=== PATIENT | female | born 1965 | race Caucasian/White ===

== ENCOUNTER 2016-03-19 11:54 | Emergency (ER) | payer OTHER ==
[2016-03-19] MEDS ORDERED: OXYCODONE-ACETAMINOPHEN 5-325 MG TABLET PO ONE (12:05)
[2016-03-19] MEDS ORDERED: ONDANSETRON 4 MG TAB.RAPDIS PO ONE (12:05)
--- NOTE | 2016-03-19 12:07 | ER Document Report ---
ED Medical Screen (RME) - General Stated Complaint: RIGHT ARM PAIN, SWELLING Time seen by provider: 12:04 Mode of Arrival: Ambulatory Information source: Patient Notes: 50-year-old female complaining of severe right shoulder pain without injury. She has a history of arthritis but she is wondering if this is bursitis. It hurts when she moves her shoulder and radiates into the right deltoid. She says there is some swelling. No recent injury. TRAVEL OUTSIDE OF THE [place] IN LAST 30 DAYS: No - Related Data Allergies/Adverse Reactions: cefdinir [From Omnicef] Allergy (Intermediate, Verified 03/23/12 15:11) rash, hives Penicillins Allergy (Intermediate, Verified 03/23/12 15:11) rash,hives Past Medical History - Past Medical History Cardiac Medical History: Reports: Hx Hypertension - meds x 7 years Denies: Hx Coronary Artery Disease, Hx Heart Attack Pulmonary Medical History: Denies: Hx Asthma, Hx Bronchitis, Hx COPD, Hx Pneumonia Neurological Medical History: Reports: Hx Migraine. Denies: Hx Cerebrovascular Accident, Hx Seizures Musculoskeltal Medical History: Reports Hx Arthritis - osteo Past Surgical History: Reports: Hx Orthopedic Surgery - carpal tunnel both hands. Denies: Hx Pacemaker - Immunizations Hx Diphtheria, Pertussis, Tetanus Vaccination: Yes - 2005 Physical Exam - Vital signs Vitals: Temp Pulse Resp BP Pulse Ox 98.0 F 100 20 145/83 H 98 03/19/16 11:59 03/19/16 11:59 03/19/16 11:59 03/19/16 11:59 03/19/16 11:59 Course - Vital Signs Vital signs: Temp Pulse Resp BP Pulse Ox 98.0 F 100 20 145/83 H 98 03/19/16 11:59 03/19/16 11:59 03/19/16 11:59 03/19/16 11:59 03/19/16 11:59
--- NOTE | 2016-03-19 12:50 | ER Document Report ---
ED Extremity Problem, Upper - General Chief Complaint: Shoulder Pain Stated Complaint: RIGHT ARM PAIN, SWELLING Time seen by provider: 12:46 Mode of Arrival: Ambulatory TRAVEL OUTSIDE OF THE [place] IN LAST 30 DAYS: No - HPI Patient complains to provider of: Right - Pt with 1 day h/o pain and swelling in R shoulder. Denies h/o trauma - Related Data Allergies/Adverse Reactions: cefdinir [From Omnicef] Allergy (Intermediate, Verified 03/23/12 15:11) rash, hives Penicillins Allergy (Intermediate, Verified 03/23/12 15:11) rash,hives Past Medical History - General Information source: Patient - Social History Smoking Status: Never Smoker Cigarette use (# per day): No Chew tobacco use (# tins/day): No Smoking Education Provided: No Family History: None - Past Medical History Cardiac Medical History: Reports: Hx Hypertension - meds x 7 years Denies: Hx Coronary Artery Disease, Hx Heart Attack Pulmonary Medical History: Denies: Hx Asthma, Hx Bronchitis, Hx COPD, Hx Pneumonia Neurological Medical History: Reports: Hx Migraine. Denies: Hx Cerebrovascular Accident, Hx Seizures Renal/ Medical History: Denies: Hx Peritoneal Dialysis Musculoskeltal Medical History: Reports Hx Arthritis - osteo Past Surgical History: Reports: Hx Orthopedic Surgery - carpal tunnel both hands. Denies: Hx Pacemaker - Immunizations Hx Diphtheria, Pertussis, Tetanus Vaccination: Yes - 2005 Review of Systems - Review of Systems Constitutional: No symptoms reported EENT: No symptoms reported Cardiovascular: No symptoms reported Respiratory: No symptoms reported Gastrointestinal: No symptoms reported Musculoskeletal: See HPI, Joint pain Neurological/Psychological: No symptoms reported Physical Exam - Vital signs Vitals: Temp Pulse Resp BP Pulse Ox 98.0 F 100 20 145/83 H 98 03/19/16 11:59 03/19/16 11:59 03/19/16 11:59 03/19/16 11:59 03/19/16 11:59 - General General appearance: Appears well In distress: None - Respiratory Respiratory status: No respiratory distress Breath sounds: Normal - Cardiovascular Rhythm: Regular Heart sounds: Normal auscultation - Extremities Shoulder: Other - there is min-mod TTP over ethe R A-C joint and R subdeltoid bursa. There is decreased ROM on full extension but is N/V intact Course - Re-evaluation Re-evalutation: 03/19/16 13:12 pt. felt better after pain meds -- expressed desire to go home with relative - Vital Signs Vital signs: Temp Pulse Resp BP Pulse Ox 98.0 F 104 H 20 145/83 H 97 03/19/16 12:04 03/19/16 12:04 03/19/16 12:04 03/19/16 12:04 03/19/16 12:04 - Diagnostic Test Radiology reviewed: Image reviewed - neg Discharge - Discharge Clinical Impression: Shoulder pain, right Qualifiers: Chronicity: acute Qualified Code(s): M25.511 - Pain in right shoulder Condition: Stable Disposition: HOME, SELF-CARE Additional Instructions: rest, take meds as prescribed, return if worse Prescriptions: Prednisone 5 mg PO BID #14 tablet Tramadol HCl 50 mg PO BID #14 tablet Referrals: TINY GILLILAND MD [ACTIVE STAFF] - Follow up as needed
[2016-03-19 13:50] VITALS: BP 131/83
== END 2016-03-19 13:43 | disposition home or self-care (01) ==
LOC: ER 11:54
DX: M25.511 Pain in right shoulder (principal); I10 Essential (primary) hypertension; Z88.3 Allergy status to other anti-infective agents; Z88.0 Allergy status to penicillin
CPT/HCPCS: 99283; 73030; S0119

== ENCOUNTER 2016-05-30 08:02 | Emergency (ER) | payer OTHER ==
[2016-05-30 08:08] VITALS: BP 151/98
[2016-05-30] MEDS ORDERED: FAMOTIDINE 20 MG TABLET PO ONE (09:25)
--- NOTE | 2016-05-30 09:39 | ER Document Report ---
ED Skin Rash/Insect Bite/Abscs - General Chief Complaint: Insect Bite Stated Complaint: FACE PAIN Time seen by provider: 09:25 Mode of Arrival: Ambulatory Information source: Patient Notes: 50-year-old female presents to ED for bug bites since last night with swelling to the left eyebrow. Soreness to the lymph node of the left side of the face no fevers or chills TRAVEL OUTSIDE OF THE [place] IN LAST 30 DAYS: No - HPI Patient complains to provider of: Insect bite Onset: Other - Monday night Onset/Duration: Persistent Quality of pain: Achy Severity: Moderate Pain Level: 3 Skin Character: Other - Inset bite to left eyebrow Quality of rash: Itchy Identify cause: Yes Exacerbated by: Denies Relieved by: Denies Similar symptoms previously: Yes Recently seen / treated by doctor: No - Related Data Allergies/Adverse Reactions: cefdinir [From Omnicef] Allergy (Intermediate, Verified 05/30/16 08:56) rash, hives Penicillins Allergy (Intermediate, Verified 05/30/16 08:56) rash,hives Past Medical History - General Information source: Patient - Social History Smoking Status: Never Smoker Cigarette use (# per day): No Chew tobacco use (# tins/day): No Smoking Education Provided: No Frequency of alcohol use: None Drug Abuse: None Lives with: Alone Family History: Arthritis, CAD, COPD, CVA, DM, Hyperlipidemia, Hypertension, Malignancy Patient has suicidal ideation: No Patient has homicidal ideation: No - Past Medical History Cardiac Medical History: Reports: Hx Hypertension - meds x 7 years Pulmonary Medical History: Reports: None EENT Medical History: Reports: None Neurological Medical History: Reports: Hx Migraine Endocrine Medical History: Reports: None Renal/ Medical History: Reports: None Malignancy Medical History: Reports: None GI Medical History: Reports: None Musculoskeltal Medical History: Reports Hx Arthritis - osteo, rheumatoid, Reports Hx Musculoskeletal Deformity, Reports Hx Musculoskeletal Trauma Skin Medical History: Reports Hx Cellulitis Psychiatric Medical History: Reports: None Past Surgical History: Reports: Hx Orthopedic Surgery - carpal tunnel both hands. Denies: Hx Pacemaker - Immunizations Hx Diphtheria, Pertussis, Tetanus Vaccination: Yes - 2006 Review of Systems - Review of Systems Constitutional: No symptoms reported EENT: No symptoms reported Cardiovascular: No symptoms reported Respiratory: No symptoms reported Gastrointestinal: No symptoms reported Genitourinary: No symptoms reported Female Genitourinary: No symptoms reported Musculoskeletal: No symptoms reported Skin: Other - Insect bite to left eyebrow Hematologic/Lymphatic: No symptoms reported Neurological/Psychological: No symptoms reported Physical Exam - Vital signs Vitals: Temp Pulse Resp BP Pulse Ox 98.5 F 90 18 151/98 H 98 05/30/16 08:06 05/30/16 08:06 05/30/16 08:06 05/30/16 08:06 05/30/16 08:06 Interpretation: Normal - General General appearance: Appears well, Alert - HEENT Head: Normocephalic, Atraumatic, Other - Insect bites to left eyebrow Eyes: Normal Pupils: PERRL Ears: Normal External canal: Normal Tympanic membrane: Normal Sinus: Normal Nasal: Normal Mouth/Lips: Normal Mucous membranes: Normal Pharynx: Normal Neck: Normal - Respiratory Respiratory status: No respiratory distress Chest status: Nontender Breath sounds: Normal Chest palpation: Normal - Cardiovascular Rhythm: Regular Heart sounds: Normal auscultation Murmur: No - Abdominal Inspection: Normal Distension: No distension Bowel sounds: Normal Tenderness: Nontender Organomegaly: No organomegaly - Back Back: Normal, Nontender - Extremities General upper extremity: Normal inspection, Nontender, Normal color, Normal ROM , Normal temperature General lower extremity: Normal inspection, Nontender, Normal color, Normal ROM , Normal temperature, Normal weight bearing. No: Cece's sign - Neurological Neuro grossly intact: Yes Cognition: Normal Orientation: AAOx4 [place] Coma Scale Eye Opening: Spontaneous Sanjay Coma Scale Verbal: Oriented Sanjay Coma Scale Motor: Obeys Commands Sanjay Coma Scale Total: 15 Speech: Normal Motor strength normal: LUE, RUE, LLE, RLE Sensory: Normal - Psychological Associated symptoms: Normal affect, Normal mood - Skin Skin Temperature: Warm Skin Moisture: Dry Skin Color: Normal Course - Vital Signs Vital signs: Temp Pulse Resp BP Pulse Ox 98.5 F 90 18 151/98 H 98 05/30/16 08:06 05/30/16 08:06 05/30/16 08:06 05/30/16 08:06 05/30/16 08:06 Discharge - Discharge Clinical Impression: Insect bite of face with local reaction Qualifiers: Encounter type: initial encounter Qualified Code(s): S00.86XA - Insect bite ( nonvenomous) of other part of head, initial encounter Condition: Stable Disposition: HOME, SELF-CARE Additional Instructions: Insect Bites You have been bitten by an insect. These bites can cause two types of swelling: an initial swelling due to insect saliva or injected poison, and a late reaction due to your body's allergic reaction. This initial local reaction may be uncomfortable but is not dangerous. Often there's an itchy "hive" at the bite location. This is treated with antihistamines, cold compresses, and resting the affected body part. The later reaction often develops about the second day. The entire area becomes very swollen, red, itchy, and tender. This is an allergic reaction. Your body is attacking the leftover insect saliva or venom. This type of allergy is unpleasant, but not dangerous. We treat this swelling with cortisone -type medicine. Sometimes we use antibiotics if we're worried about infection. Antihistamines help with the itch. If you develop a fever, chills, a red streak, or swollen glands in the area of the bite, infection may be starting. Return at once. ACID-SUPPRESSING MEDICATION: You have a prescription for medicine which reduces the stomach's secretion of acid. Examples include Zantac, Tagament, and Pepcid. These drugs are often used to allow healing of ulcers or esophagitis. They may be needed to prevent recurrence of ulcers in some patients, or to prevent damage from acid reflux in the esophagus. Take all medication as prescribed, even after the pain is gone. Regular antacids may be added as needed if you have symptoms while taking this medicine. These medications sometimes are prescribed for allergic reactions because they have anti-histaminic effects and relieve the rash and itching of the reaction. There are usually no side effects from this medication. But, in rare cases and particularly in the elderly, serious problems can occur. Contact your doctor if there is fever, rash, hallucinations, confusion, or unusual bruising. USE OF DIPHENHYDRAMINE: The use of diphenhydramine (Benadryl) has been recommended to control allergic symptoms. The 25 mg strength is available over- the-counter, as well as the elixir. This antihistamine is used for many symptoms. It's useful for itching, watering eyes and nose, allergic swelling, hives, and insect stings. The medication can be repeated four times daily. Age Elixir (12.5 mg/tsp) 25 mg pill 2-3 yr 1/2 tsp 4-8 yr 1 tsp 9-14 yr 2 tsp one tab adult 1-2 tabs Antihistamines may cause drowsiness, especially with the first dose. Do not operate machinery or drive while under the effects of the medication. Do not combine the medication with alcohol, or with any other medication without talking to your doctor. FOLLOW-UP CARE: If you have been referred to a physician for follow-up care, call the physician s office for an appointment as you were instructed or within the next two days. If you experience worsening or a significant change in your symptoms, notify the physician immediately or return to the Emergency Department at any time for re-evaluation. Please complete the patient's satisfaction survey if you get one and return. If you do not receive a survey you can go to [email or web address] and place your comments about your very good care. Thank you very much. It was a pleasure be in your medical provider today. Forms: Elevated Blood Pressure, Return to Work Referrals: MONIKA GO MD [Primary Care Provider] - Follow up as needed
== END 2016-05-30 09:36 | disposition home or self-care (01) ==
LOC: ER 08:02
DX: S00.262A Insect bite (nonvenomous) of left eyelid and periocular area, initial encounter (principal); W57.XXXA Bitten or stung by nonvenomous insect and other nonvenomous arthropods, initial encounter; I10 Essential (primary) hypertension; Z88.0 Allergy status to penicillin
CPT/HCPCS: 99283

== ENCOUNTER 2016-06-05 12:17 | Emergency (ER) | payer OTHER ==
--- NOTE | 2016-06-05 12:42 | ER Document Report ---
ED Medical Screen (RME) - General Chief Complaint: Headache Stated Complaint: LEFT EYE SWELLING Mode of Arrival: Ambulatory Information source: Patient TRAVEL OUTSIDE OF THE [place] IN LAST 30 DAYS: No - HPI Onset: Other - 9 DAYS AGO Onset/Duration: Sudden Quality of pain: Burning, Pressure Severity: Moderate Associated Symptoms: Chills, Nausea. denies: Fever Exacerbated by: Movement Relieved by: Remaining still Similar symptoms previously: No Recently seen / treated by doctor: Yes - DR. GO, 5 d AGO, BEGUN ON KEFLEX - Related Data Allergies/Adverse Reactions: cefdinir [From Omnicef] Allergy (Intermediate, Verified 06/05/16 12:28) rash, hives Penicillins Allergy (Intermediate, Verified 06/05/16 12:28) rash,hives Home Medications: Current Home Medications Cephalexin [Cephalexin 500 MG Capsule] 1 cap PO QID 06/05/16 [History] Duloxetine HCl 60 mg PO DAILY 06/05/16 [History] Folic Acid 1 tab PO DAILY 06/05/16 [History] Hydrocodone Bit/Acetaminophen [Hydrocodon-Acetaminophen 5-325] 1 tab PO PRN PRN 06/05/16 [History] Metronidazole [Flagyl 500 mg Tablet] 500 mg PO PRN PRN 06/05/16 [History] Prednisone 5 mg PO DAILY 06/05/16 [History] Past Medical History - General Information source: Patient - Past Medical History Cardiac Medical History: Reports: Hx Hypertension - meds x 7 years Denies: Hx Coronary Artery Disease, Hx Heart Attack Pulmonary Medical History: Denies: Hx Asthma, Hx Bronchitis, Hx COPD, Hx Pneumonia Neurological Medical History: Reports: Hx Migraine. 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 Denies: Hx Pacemaker - Immunizations Hx Diphtheria, Pertussis, Tetanus Vaccination: Yes - 2006 Review of Systems - Review of Systems Constitutional: See HPI EENT: See HPI Cardiovascular: No symptoms reported Respiratory: No symptoms reported Gastrointestinal: Other - INCREASED PAIN IN FISTULA Physical Exam - Vital signs Vitals: Temp Pulse Resp BP Pulse Ox 98.5 F 105 H 18 153/87 H 98 06/05/16 12:20 06/05/16 12:20 06/05/16 12:20 06/05/16 12:20 06/05/16 12:20 Interpretation: Hypertensive, Tachypneic. No: Febrile - General General appearance: Appears well, Alert In distress: None - HEENT Head: Open wounds - L. EYEBROW AREA Notes: MILD FULLNESS AND TENDERNESS L. FACE, PRE-AURICULAR Course - Vital Signs Vital signs: Temp Pulse Resp BP Pulse Ox 98.5 F 105 H 18 153/87 H 98 06/05/16 12:20 06/05/16 12:20 06/05/16 12:20 06/05/16 12:20 06/05/16 12:20
[2016-06-05] MEDS ORDERED: CLINDAMYCIN 600 MG/D5W RTU 50 ML IV ONE (12:49)
[2016-06-05 13:09] LABS: ABSOLUTE BASOPHILS # (AUTO) 0.1 10^3/uL (0.0-0.2); ABSOLUTE EOSINOPHILS # (AUTO) 0.3 10^3/uL (0.0-0.6); ABSOLUTE LYMPHOCYTES (AUTO) 2.5 10^3/uL (0.5-4.7); ABSOLUTE MONOCYTES (AUTO) 0.7 10^3/uL (0.1-1.4); ABSOLUTE NEUT (AUTO) 6.3 10^3/uL (1.7-8.2); BASOPHILS % (AUTO) 0.9 % (0-2); EOSINOPHILS % (AUTO) 2.9 % (0-6); HEMATOCRIT 37.4 % (36.0-47.0); HEMOGLOBIN 12.5 g/dL (12.0-15.5); HGB HCT DIFFERENCE 0.1; LYMPHOCYTES % (AUTO) 25.2 % (13-45); MEAN CORPUSCULAR HEMOGLOBIN 30.1 pg (27.0-33.4); MEAN CORPUSCULAR HGB CONC 33.3 g/dL (32.0-36.0); MEAN CORPUSCULAR VOLUME 90 fl (80-97); MONOCYTES % (AUTO) 7.2 % (3-13); RED BLOOD COUNT 4.14 10^6/uL (3.72-5.28); RED CELL DISTRIBUTION WIDTH 15.4 % (11.5-14.0); SEGMENTED NEUTROPHILS % (AUTO) 63.8 % (42-78); WHITE BLOOD COUNT 9.8 10^3/uL (4.0-10.5)
[2016-06-05 13:24] LABS: ALANINE AMINOTRANSFERASE 41 U/L (9-52); ALBUMIN 4.1 g/dL (3.5-5.0); ALKALINE PHOSPHATASE 61 U/L (38-126); ANION GAP 13 (5-19); ASPARTATE AMINO TRANSFERASE 20 U/L (14-36); BILIRUBIN,DIRECT 0.3 mg/dL (0.0-0.4); BILIRUBIN,TOTAL 0.9 mg/dL (0.2-1.3); BLOOD UREA NITROGEN 19 mg/dL (7-20); CALCIUM 9.5 mg/dL (8.4-10.2); CARBON DIOXIDE 31 mmol/L (22-30); CHLORIDE 101 mmol/L (98-107); GLUCOSE 131 mg/dL (75-110); POTASSIUM 4.2 mmol/L (3.6-5.0); SODIUM 144.6 mmol/L (137-145); TOTAL PROTEIN 6.9 g/dL (6.3-8.2)
--- NOTE | 2016-06-05 14:17 | ER Document Report ---
ED General - General Chief Complaint: Headache Stated Complaint: LEFT EYE SWELLING Time seen by provider: 14:15 Mode of Arrival: Ambulatory Information source: Patient Notes: This is a 50-year-old female with a history of hypertension and arthritis who presents to the emergency room with swelling over the left eyebrow. Patient states it started off as a possible "bug bite". Patient states that she saw Dr. Flores and was placed on Keflex and comes in because it continues to itch and she is having pain in the area. Patient denies fever. Patient states that she gets blurry vision could she's rubbing her eye a lot. TRAVEL OUTSIDE OF THE [place] IN LAST 30 DAYS: No - HPI Onset: Yesterday Onset/Duration: Gradual Quality of pain: Other - Itching Severity: Mild Pain Level: Denies Associated symptoms: denies: Chills, Fever, Shortness of breath Exacerbated by: Denies Relieved by: Denies Similar symptoms previously: No Recently seen / treated by doctor: Yes - Related Data Allergies/Adverse Reactions: cefdinir [From Omnicef] Allergy (Intermediate, Verified 06/05/16 12:28) rash, hives Penicillins Allergy (Intermediate, Verified 06/05/16 12:28) rash,hives Home Medications: Current Home Medications Cephalexin [Cephalexin 500 MG Capsule] 1 cap PO QID 06/05/16 [History] Duloxetine HCl 60 mg PO DAILY 06/05/16 [History] Folic Acid 1 tab PO DAILY 06/05/16 [History] Hydrocodone Bit/Acetaminophen [Hydrocodon-Acetaminophen 5-325] 1 tab PO PRN PRN 06/05/16 [History] Metronidazole [Flagyl 500 mg Tablet] 500 mg PO PRN PRN 06/05/16 [History] Prednisone 5 mg PO DAILY 06/05/16 [History] Past Medical History - General Information source: Patient - Social History Smoking Status: Never Smoker Cigarette use (# per day): No Chew tobacco use (# tins/day): No Frequency of alcohol use: None Drug Abuse: None Family History: Arthritis, CAD, COPD, CVA, DM, Hyperlipidemia, Hypertension, Malignancy Patient has suicidal ideation: No Patient has homicidal ideation: No - Past Medical History Cardiac Medical History: Reports: Hx Hypertension - meds x 7 years Denies: Hx Coronary Artery Disease, Hx Heart Attack Pulmonary Medical History: Denies: Hx Asthma, Hx Bronchitis, Hx COPD, Hx Pneumonia Neurological Medical History: Reports: Hx Migraine. 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 Denies: Hx Pacemaker - Immunizations Hx Diphtheria, Pertussis, Tetanus Vaccination: Yes - 2005 Review of Systems - Review of Systems Constitutional: denies: Chills, Fever EENT: See HPI Cardiovascular: No symptoms reported Respiratory: No symptoms reported Gastrointestinal: No symptoms reported Genitourinary: No symptoms reported Female Genitourinary: No symptoms reported Musculoskeletal: No symptoms reported Skin: No symptoms reported Hematologic/Lymphatic: No symptoms reported Neurological/Psychological: No symptoms reported Physical Exam - Vital signs Vitals: Temp Pulse Resp BP Pulse Ox 98.5 F 105 H 18 153/87 H 98 06/05/16 12:20 06/05/16 12:20 06/05/16 12:20 06/05/16 12:20 06/05/16 12:20 Notes: Physical exam: GENERAL: 50-year-old female, alert and oriented 3, no acute distress. Lying in the stretcher with her mother. Patient is continually rubbing her left eyebrow. HEAD: Atraumatic, normocephalic. EYES: Patient does have a small scab on the middle portion of the left eyebrow. There is induration and erythema of the area but no gross fluctuance. There is no drainage. Pupils equal round and reactive to light, extraocular movements intact, is no pain with extraocular muscles and there is no entrapment , sclera is clear, conjunctiva is clear. ENT: TMs normal, nares patent, oropharynx clear without exudates. Moist mucous membranes. NECK: Normal range of motion, supple without lymphadenopathy or JVD. LUNGS: Breath sounds clear to auscultation bilaterally and equal. No wheezes rales or rhonchi. HEART: Regular rate and rhythm without murmurs, rubs or gallops. ABDOMEN: Soft, normoactive bowel sounds. No tenderness to palpation. No guarding, no rebound. No masses appreciated. EXTREMITIES: Normal range of motion, no pitting or edema. No clubbing or cyanosis. NEUROLOGICAL: Cranial nerves II through XII grossly intact. Normal speech, normal gait. PSYCH: Normal mood, normal affect. SKIN: Warm, Dry, normal turgor, no rashes or lesions noted. Course - Re-evaluation Re-evalutation: 06/05/16 16:22 Note: Clinically, there is no fluctuance at this point. The CT shows no obvious abscess. Patient is afebrile on the white count is normal. The patient was given IV clindamycin and a tetanus shot. I have referred her to plastic surgery for follow-up. In the meantime, I'm putting her on clindamycin and taking her off the Keflex. - Vital Signs Vital signs: Temp Pulse Resp BP Pulse Ox 98.5 F 105 H 18 153/87 H 98 06/05/16 12:20 06/05/16 12:20 06/05/16 12:20 06/05/16 12:20 06/05/16 12:20 - Laboratory Result Diagrams: 06/05/16 12:55 06/05/16 12:55 Laboratory results interpreted by me: 06/05/16 06/05/16 12:55 12:55 RDW 15.4 H Carbon Dioxide 31 H Glucose 131 H - Diagnostic Test Radiology reviewed: Image reviewed, Reports reviewed - CT of the face shows no obvious abscess Discharge - Discharge Clinical Impression: cellulitis Condition: Stable Disposition: HOME, SELF-CARE Instructions: Clindamycin ([facility]), Tetanus Immunization Given ([facility]) Additional Instructions: As we discussed, the CT scan showed no evidence of abscess at this point. You did get a dose of IV clindamycin in the emergency room as well as a tetanus shot. Recommendations: Continue the clindamycin antibiotic. Stop the Keflex. Can put warm soaks over the left eyebrow several times a day for the next few days. Abdomen abscess does form: I would like you to follow-up with the plastic surgeon who would perform an incision and drainage. Return to the ER for any concerns that the infection is spreading, worsening pain, worsening redness, worsening swelling or any concerns or getting worse. Prescriptions: Clindamycin HCl 300 mg PO Q6HP PRN #28 capsule PRN Reason: Forms: Parent Work Note, Return to Work Referrals: MONIKA FLORES MD [Primary Care Provider] - Follow up in 3-5 days KEYONNA CONWAY MD [ACTIVE STAFF] - Follow up as needed (This is the number the plastic surgeon: Call the office tomorrow and tell them you were in the emergency room for a facial infection in the ER doctor wanted you seen in the next few days.)
[2016-06-05] MEDS ORDERED: DIPH/PERTUSS(ACELL)/TETANUS VAC/PF 0.5 ML SYR (>=10YO) IM ONE (16:15)
[2016-06-05 17:29] VITALS: BP 126/75
== END 2016-06-05 17:28 | disposition home or self-care (01) ==
LOC: ER 12:17
DX: L03.211 Cellulitis of face (principal); R51 Headache; I10 Essential (primary) hypertension; Z88.0 Allergy status to penicillin; Z23 Encounter for immunization
CPT/HCPCS: 36415; 70487; 80053; 85025; 87040; 90471; 90715; 96365; 99284

== ENCOUNTER 2017-07-15 09:28 | Emergency (ER) | payer OTHER ==
[2017-07-15] MEDS ORDERED: CLINDAMYCIN 600 MG/D5W RTU 600 MG/50 ML RTUPB IV ONE (10:00)
--- NOTE | 2017-07-15 10:11 | ER Document Report ---
ED Medical Screen (RME) - General Chief Complaint: Cat Bite Stated Complaint: CAT BITE Time Seen by Provider: 07/15/17 09:57 Mode of Arrival: Ambulatory Information source: Patient Notes: This is a 51-year-old female presents to the emergency room with left third finger swelling and pain after a cat bite yesterday at 6 PM. Patient states that the cat lives at her mother's house but "it is not my mother's cat". The cat was acting appropriate and was "not foaming at the mouth or acting strange" . This is a 4-week-old (approximately) feral cat. The cat stays around the mother's home and the patient takes care of it. It seemed to have an upper respiratory infection and the patient was cleaning the cat when it turned and latched onto her finger. This occurred 6 PM yesterday and it was throbbing last night and she comes in with redness and throbbing of the left third finger. There is a obvious bite with tenderness to the volar aspect of the distal finger. She does feel pain going up the flexor tendon of the finger. She is allergic to penicillin and Omnicef. She does state she has tolerated Augmentin in the past. Tetanus is up-to-date (last year) I have addressed the issue of rabies prophylaxis. The patient reiterates that the cat was acting quite normally. She prefers not to have rabies prophylaxis at this time. I have discussed the recommendations that Vasyl cats that are not available for observation might require prophylaxis for rabies. She is adamant against that at this time and states that the cat is at the house and available for observation. I have greeted and performed a rapid initial assessment of this patient. A comprehensive ED assessment and evaluation of the patient, analysis of test results and completion of medical decision making process we will be contacted by additional ED providers. TRAVEL OUTSIDE OF THE [place] IN LAST 30 DAYS: No - Related Data Allergies/Adverse Reactions: cefdinir [From Omnicef] Allergy (Intermediate, Verified 07/15/17 09:29) rash, hives Penicillins Allergy (Intermediate, Verified 07/15/17 09:29) rash,hives Past Medical History - Social History Chew tobacco use (# tins/day): No Frequency of alcohol use: None Drug Abuse: None - Past Medical History Cardiac Medical History: Reports: Hx Hypertension - meds x 7 years Denies: Hx Coronary Artery Disease, Hx Heart Attack Pulmonary Medical History: Denies: Hx Asthma, Hx Bronchitis, Hx COPD, Hx Pneumonia Neurological Medical History: Reports: Hx Migraine. Denies: Hx Cerebrovascular Accident, Hx Seizures Renal/ Medical History: Denies: Hx Peritoneal Dialysis Musculoskeltal Medical History: Reports Hx Arthritis - osteo, Reports Hx Musculoskeletal Deformity, Reports Hx Musculoskeletal Trauma Skin Medical History: Reports Hx Cellulitis Past Surgical History: Reports: Hx Orthopedic Surgery - carpal tunnel both hands. Denies: Hx Pacemaker - Immunizations Hx Diphtheria, Pertussis, Tetanus Vaccination: Yes - 2005 Physical Exam - Vital signs Vitals: Temp Pulse Resp BP Pulse Ox 99.0 F 95 18 148/98 H 97 07/15/17 09:33 07/15/17 09:33 07/15/17 09:33 07/15/17 09:33 07/15/17 09:33 Course - Vital Signs Vital signs: Temp Pulse Resp BP Pulse Ox 99.0 F 95 18 148/98 H 97 07/15/17 09:33 07/15/17 09:33 07/15/17 09:33 07/15/17 09:33 07/15/17 09:33
[2017-07-15] MEDS ORDERED: LIDOCAINE 1% INJ-PF (10 MG/ML) 30 ML SDV INJ ONE (10:49)
[2017-07-15] MEDS ORDERED: AMPICILLIN SOD/SULBACTAM 3 GM VIAL IV ONE (10:49)
--- NOTE | 2017-07-15 10:57 | ER Document Report ---
ED Animal Bite - General Chief Complaint: Cat Bite Stated Complaint: CAT BITE Time Seen by Provider: 07/15/17 09:57 Mode of Arrival: Ambulatory Notes: 51-year-old female to emergency department status post Bite third digit left hand. Patient was taking care of a feral cat when she was bit on her fingertip last night. Has been throbbing all night long. States that the cat has a "upper respiratory infection" and she has been taking care of it. Does not appear to be acting abnormal but does admit to the cat is sick. When asked about rabies shots patient is adamant that she does not want to take rabies shots. Patient is up-to-date on her tetanus. Has a reported allergy to penicillin and cephalosporin however thinks that this is an accurate. Has taken Augmentin as well as Omnicef in the past. States that she had some redness developed while on Omnicef but was easily treated with Benadryl and completed the course of Omnicef. Pain is located on the distal tip of the third digit on the left hand. Throbbing. No lymphangitic streaking is reported. No fever, chills, sweats or other issues. TRAVEL OUTSIDE OF THE [place] IN LAST 30 DAYS: No - HPI Location of injury: LUE Severity of injury: Bitten Onset: Yesterday Quality of pain: Throbbing Pain Level: 3 Severity: Moderate Context of attack: "Provoked" attack, Playing with animal Type of animal: Cat Appearance of animal: Appeared ill Animal's immunizations: Not immunized Animal captured or known: Yes - Related Data Allergies/Adverse Reactions: cefdinir [From Omnicef] Allergy (Intermediate, Verified 07/15/17 09:29) rash, hives Penicillins Allergy (Intermediate, Verified 07/15/17 09:29) rash,hives Past Medical History - General Information source: Patient - Social History Smoking Status: Never Smoker Chew tobacco use (# tins/day): No Frequency of alcohol use: None Drug Abuse: None Lives with: Spouse/Significant other Family History: Arthritis, CAD, COPD, CVA, DM, Hyperlipidemia, Hypertension, Malignancy Patient has suicidal ideation: No Patient has homicidal ideation: No - Past Medical History Cardiac Medical History: Reports: Hx Hypertension - meds x 7 years Denies: Hx Coronary Artery Disease, Hx Heart Attack Pulmonary Medical History: Denies: Hx Asthma, Hx Bronchitis, Hx COPD, Hx Pneumonia Neurological Medical History: Reports: Hx Migraine. Denies: Hx Cerebrovascular Accident, Hx Seizures Renal/ Medical History: Denies: Hx Peritoneal Dialysis Musculoskeltal Medical History: Reports Hx Arthritis - osteo, Reports Hx Musculoskeletal Deformity, Reports Hx Musculoskeletal Trauma Skin Medical History: Reports Hx Cellulitis Past Surgical History: Reports: Hx Orthopedic Surgery - carpal tunnel both hands. Denies: Hx Pacemaker - Immunizations Hx Diphtheria, Pertussis, Tetanus Vaccination: Yes - 2005 Review of Systems - Review of Systems Constitutional: denies: Fever, Malaise, Weakness EENT: denies: Eye pain, Ear discharge, Difficulty swallowing Cardiovascular: denies: Chest pain, Palpitations, Heart racing Respiratory: denies: Cough, Hurts to breathe, Short of breath Gastrointestinal: denies: Abdominal pain, Nausea, Vomiting Musculoskeletal: See HPI, Other - Finger swelling status post cat bite Skin: See HPI, Other - Finger swelling of the third digit on the left hand Physical Exam - Vital signs Vitals: Temp Pulse Resp BP Pulse Ox 99.0 F 95 18 148/98 H 97 07/15/17 09:33 07/15/17 09:33 07/15/17 09:33 07/15/17 09:33 07/15/17 09:33 Interpretation: Normal - Respiratory Respiratory status: No respiratory distress Chest status: Nontender Breath sounds: Normal Chest palpation: Normal - Cardiovascular Rhythm: Regular Heart sounds: Normal auscultation Murmur: No - Extremities General upper extremity: Normal ROM, Other - The third digit distal tip left hand swollen, red, warm. There are 2 puncture madden on both the radial and ulnar aspects of the distal tip of the third digit on the left hand. Appears to have developing felon sensation is intact. General lower extremity: Normal inspection, Nontender, Normal color, Normal ROM , Normal temperature, Normal weight bearing. No: Cece's sign - Neurological Neuro grossly intact: Yes Cognition: Normal Orientation: AAOx4 Sanjay Coma Scale Eye Opening: Spontaneous Sanjay Coma Scale Verbal: Oriented Sanjay Coma Scale Motor: Obeys Commands Austin Coma Scale Total: 15 Speech: Normal Motor strength normal: LUE, RUE, LLE, RLE Sensory: Normal - Skin Skin Temperature: Warm Skin Moisture: Dry Skin Color: Normal, Other - Bite distal tip third digit left hand with erythema. No active drainage. Course - Re-evaluation Re-evalutation: 07/15/17 10:58 Patient is unlikely allergic to penicillin based on her known history of Augmentin and Omnicef. Will try Unasyn IV as this would be superior coverage for the cat bite. Will do a digital block on the third digit of the left hand and attempt to incise what could be an early developing felon. Patient has consented to procedure as well as antibiotics. Patient has refused rabies prophylaxis. Will contact animal control through our protocol and attempt to locate For quarantine. 07/15/17 12:13 Laboratory 07/15/17 07/15/17 11:17 11:17 WBC 7.4 RBC 4.13 Hgb 12.8 Hct 37.4 MCV 91 MCH 31.1 MCHC 34.3 RDW 14.3 H Plt Count 270 Seg Neutrophils % 69.8 Lymphocytes % 21.0 Monocytes % 5.7 Eosinophils % 2.8 Basophils % 0.7 Absolute Neutrophils 5.2 Absolute Lymphocytes 1.6 Absolute Monocytes 0.4 Absolute Eosinophils 0.2 Absolute Basophils 0.1 Sodium 143.7 Potassium 4.1 Chloride 107 Carbon Dioxide 27 Anion Gap 10 BUN 17 Creatinine 0.57 Est GFR ( Amer) > 60 Est GFR (Non-Af Amer) > 60 Glucose 143 H Calcium 9.4 Ill-appearing. No obvious felon. Fell and procedure was performed but no significant drainage. Patient received IV Unasyn without complications so have advised her that she is able to take ampicillin without problem. We will discharge her on Augmentin. Pain medicine as needed. 24 hour follow-up. - Vital Signs Vital signs: Temp Pulse Resp BP Pulse Ox 99.0 F 95 18 148/98 H 97 07/15/17 09:33 07/15/17 09:33 07/15/17 09:33 07/15/17 09:33 07/15/17 09:33 - Laboratory Result Diagrams: 07/15/17 11:17 07/15/17 11:17 Laboratory results interpreted by me: 07/15/17 07/15/17 11:17 11:17 RDW 14.3 H Glucose 143 H Procedures - Incision and Drainage Left 3rd digit Time completed: 12:12 Type: Simple Anesthetic type: 1% Lidocaine mL's of anesthetic: 7 Blade size: 11 I&D procedure: Betadine prep applied Incision Method: Incision made by scalpel Amount/type of drainage: 0 Notes: 07/15/17 12:12 A digital block was performed on the third digit of the left hand with 1% lidocaine without epinephrine. After proper anesthesia was obtained a scalpel was used to make a small incision on the radial bite tigist of the distal tip of the third digit on the left hand. Small tunnel was made over to the mid fingertip pad. No significant amount of drainage was obtained. Did not place packing. Dressings were applied. No complications. Discharge - Discharge Clinical Impression: Cat bite of finger Qualifiers: Encounter type: initial encounter Qualified Code(s): S61.259A - Open bite of unspecified finger without damage to nail, initial encounter; W55.01XA - Bitten by cat, initial encounter; W55.01XA - Bitten by cat, initial encounter Disposition: HOME, SELF-CARE Instructions: Animal Bites ([facility]) Additional Instructions: Return in 24 hours for a recheck Rabies Prophyllaxis It is critical that the animal be quarantined and observed. You have been offered rabies prophylaxis but you have decided against that. This is AGAINST MEDICAL ADVICE at this time. Please see the instructions regarding rabies below. Should you change your mind you have a short window of time to do so. We are always willing to help you in any way. Please come back if you change your mind. Please contact animal control immediately to have the cat located and quarantined. Rabies immunization can prevent infection with the rabies virus. This virus is always fatal if it reaches the nervous system. Exposure to an infected animal's saliva requires a series of shots. If you're already immunized, you may need only a booster shot. It's critical for you to follow the exact schedule of immunizations. After the first shot, we give repeat doses in 3 days, 7 days, 14 days, and 28 days. The repeat doses can also be given through the Health Department or by special arrangement with your doctor. Ibuprofen or acetaminophen can be used for aching and swelling at the injection site. Call the doctor or return if you develop increasing pain, fever , chills, or spreading redness, or if you become short of breath or faint. Prescriptions: Amox Tr/Potassium Clavulanate [Augmentin 875-125 Tablet] 1 tab PO BID 10 Days # 20 tablet Hydrocodone/Acetaminophen [[place] 5-325 mg Tablet] 1 tab PO TID PRN 3 Days #9 tablet PRN Reason: Pain Scale Of 3 Referrals: MONIKA GO MD [Primary Care Provider] - Follow up as needed
[2017-07-15 11:44] LABS: ABSOLUTE BASOPHILS # (AUTO) 0.1 10^3/uL (0.0-0.2); ABSOLUTE EOSINOPHILS # (AUTO) 0.2 10^3/uL (0.0-0.6); ABSOLUTE LYMPHOCYTES (AUTO) 1.6 10^3/uL (0.5-4.7); ABSOLUTE MONOCYTES (AUTO) 0.4 10^3/uL (0.1-1.4); ABSOLUTE NEUT (AUTO) 5.2 10^3/uL (1.7-8.2); BASOPHILS % (AUTO) 0.7 % (0-2); EOSINOPHILS % (AUTO) 2.8 % (0-6); HEMATOCRIT 37.4 % (36.0-47.0); HEMOGLOBIN 12.8 g/dL (12.0-15.5); MEAN CORPUSCULAR HEMOGLOBIN 31.1 pg (27.0-33.4); MEAN CORPUSCULAR HGB CONC 34.3 g/dL (32.0-36.0); MEAN CORPUSCULAR VOLUME 91 fl (80-97); MONOCYTES % (AUTO) 5.7 % (3-13); PLATELET COUNT 270 10^3/uL (150-450); RED BLOOD COUNT 4.13 10^6/uL (3.72-5.28); RED CELL DISTRIBUTION WIDTH 14.3 % (11.5-14.0); SEGMENTED NEUTROPHILS % (AUTO) 69.8 % (42-78); TOTAL CELLS COUNTED % (AUTO) 100 %; WHITE BLOOD COUNT 7.4 10^3/uL (4.0-10.5)
[2017-07-15 12:07] LABS: ANION GAP 10 (5-19); BLOOD UREA NITROGEN 17 mg/dL (7-20); CALCIUM 9.4 mg/dL (8.4-10.2); CARBON DIOXIDE 27 mmol/L (22-30); CHLORIDE 107 mmol/L (98-107); GLUCOSE 143 mg/dL (75-110); POTASSIUM 4.1 mmol/L (3.6-5.0); SODIUM 143.7 mmol/L (137-145)
[2017-07-15 12:32] VITALS: BP 143/79
== END 2017-07-15 12:32 | disposition home or self-care (01) ==
LOC: ER 09:28
DX: S61.253A Open bite of left middle finger without damage to nail, initial encounter (principal); W55.01XA Bitten by cat, initial encounter; Y93.K9 Activity, other involving animal care; I10 Essential (primary) hypertension
CPT/HCPCS: 99284; 96365; 96366; 96368; 36415; 87040; 85025; 80048; 10060; J0295; J3490

== ENCOUNTER 2017-07-16 11:45 | Emergency (ER) | payer OTHER ==
[2017-07-16] MEDS ORDERED: AMPICILLIN SOD/SULBACTAM 3 GM VIAL IV ONE (12:08)
--- NOTE | 2017-07-16 12:08 | ER Document Report ---
ED Medical Screen (RME) - General Chief Complaint: Cat Bite Stated Complaint: RECHECK ON CAT BITE Time Seen by Provider: 07/16/17 12:01 Mode of Arrival: Ambulatory Information source: Patient Notes: Patient is here for reassessment for cat bite that occurred 2 days ago at 6 PM. Patient was treated with Unasyn, received a finger block and attempt at drainage. Patient was discharged on Augmentin. She returns today stating that the redness and pain are worse. She denies fever. Clinically, it looks like the patient has a felon. Patient's tetanus is up-to-date. Rabies was addressed yesterday: See yesterday's note. I have greeted and performed a rapid initial assessment of this patient. A comprehensive ED assessment and evaluation of the patient, analysis of test results and completion of medical decision making process we will be contacted by additional ED providers. TRAVEL OUTSIDE OF THE [place] IN LAST 30 DAYS: No - Related Data Allergies/Adverse Reactions: cefdinir [From Omnicef] Allergy (Intermediate, Verified 07/16/17 11:46) rash, hives Penicillins Allergy (Intermediate, Verified 07/16/17 11:46) rash,hives Past Medical History - Social History Chew tobacco use (# tins/day): No Frequency of alcohol use: None Drug Abuse: None - Past Medical History Cardiac Medical History: Reports: Hx Hypertension - meds x 7 years Denies: Hx Coronary Artery Disease, Hx Heart Attack Pulmonary Medical History: Denies: Hx Asthma, Hx Bronchitis, Hx COPD, Hx Pneumonia Neurological Medical History: Reports: Hx Migraine. Denies: Hx Cerebrovascular Accident, Hx Seizures Renal/ Medical History: Denies: Hx Peritoneal Dialysis Musculoskeltal Medical History: Reports Hx Arthritis - osteo, Reports Hx Musculoskeletal Deformity, Reports Hx Musculoskeletal Trauma Skin Medical History: Reports Hx Cellulitis Past Surgical History: Reports: Hx Orthopedic Surgery - carpal tunnel both hands. Denies: Hx Pacemaker - Immunizations Hx Diphtheria, Pertussis, Tetanus Vaccination: Yes - 2005 Physical Exam - Vital signs Vitals: Temp Pulse Resp BP Pulse Ox 98.4 F 86 22 H 145/83 H 96 07/16/17 11:49 07/16/17 11:49 07/16/17 11:49 07/16/17 11:49 07/16/17 11:49 Course - Vital Signs Vital signs: Temp Pulse Resp BP Pulse Ox 98.4 F 86 22 H 145/83 H 96 07/16/17 11:49 07/16/17 11:49 07/16/17 11:49 07/16/17 11:49 07/16/17 11:49
[2017-07-16 12:59] LABS: ABSOLUTE BASOPHILS # (AUTO) 0.1 10^3/uL (0.0-0.2); ABSOLUTE EOSINOPHILS # (AUTO) 0.2 10^3/uL (0.0-0.6); ABSOLUTE LYMPHOCYTES (AUTO) 1.7 10^3/uL (0.5-4.7); ABSOLUTE MONOCYTES (AUTO) 0.3 10^3/uL (0.1-1.4); ABSOLUTE NEUT (AUTO) 3.9 10^3/uL (1.7-8.2); BASOPHILS % (AUTO) 0.8 % (0-2); EOSINOPHILS % (AUTO) 3.4 % (0-6); HEMATOCRIT 36.3 % (36.0-47.0); HEMOGLOBIN 12.3 g/dL (12.0-15.5); LYMPHOCYTES % (AUTO) 27.8 % (13-45); MEAN CORPUSCULAR HEMOGLOBIN 30.8 pg (27.0-33.4); MEAN CORPUSCULAR VOLUME 91 fl (80-97); MONOCYTES % (AUTO) 4.8 % (3-13); PLATELET COUNT 261 10^3/uL (150-450); RED BLOOD COUNT 4.01 10^6/uL (3.72-5.28); RED CELL DISTRIBUTION WIDTH 14.3 % (11.5-14.0); SEGMENTED NEUTROPHILS % (AUTO) 63.2 % (42-78); TOTAL CELLS COUNTED % (AUTO) 100 %; WHITE BLOOD COUNT 6.1 10^3/uL (4.0-10.5)
[2017-07-16 13:15] LABS: ALANINE AMINOTRANSFERASE 21 U/L (9-52); ALBUMIN 3.8 g/dL (3.5-5.0); ALKALINE PHOSPHATASE 50 U/L (38-126); ANION GAP 12 (5-19); ASPARTATE AMINO TRANSFERASE 14 U/L (14-36); BILIRUBIN,DIRECT 0.3 mg/dL (0.0-0.4); BILIRUBIN,TOTAL 0.7 mg/dL (0.2-1.3); BLOOD UREA NITROGEN 13 mg/dL (7-20); CALCIUM 9.4 mg/dL (8.4-10.2); CARBON DIOXIDE 26 mmol/L (22-30); CHLORIDE 106 mmol/L (98-107); GLUCOSE 137 mg/dL (75-110); TOTAL PROTEIN 6.4 g/dL (6.3-8.2)
--- NOTE | 2017-07-16 13:52 | ER Document Report ---
ED General - General Chief Complaint: Cat Bite Stated Complaint: RECHECK ON CAT BITE Time Seen by Provider: 07/16/17 12:01 Mode of Arrival: Ambulatory Information source: Patient Notes: 51-year-old female presents for recheck of cat bite to left hand third digit. Patient was bit 2 days ago was seen here yesterday approximately 16 hours after the bite a incision and drainage was performed and patient was given antibiotics , she notes symptoms are about the same and came back for recheck. She denies any fevers or chills denies any nausea vomiting or diarrhea TRAVEL OUTSIDE OF THE [place] IN LAST 30 DAYS: No - HPI Onset: Other Onset/Duration: Persistent Quality of pain: Sharp Severity: Mild Pain Level: 1 Associated symptoms: Other Exacerbated by: Movement Relieved by: Denies Similar symptoms previously: Yes Recently seen / treated by doctor: Yes - Related Data Allergies/Adverse Reactions: cefdinir [From Omnicef] Allergy (Intermediate, Verified 07/16/17 11:46) rash, hives Penicillins Allergy (Intermediate, Verified 07/16/17 11:46) rash,hives Past Medical History - General Information source: Patient - Social History Smoking Status: Never Smoker Cigarette use (# per day): No Chew tobacco use (# tins/day): No Smoking Education Provided: No Frequency of alcohol use: None Drug Abuse: None Family History: Arthritis, CAD, COPD, CVA, DM, Hyperlipidemia, Hypertension, Malignancy Patient has suicidal ideation: No Patient has homicidal ideation: No - Past Medical History Cardiac Medical History: Reports: Hx Hypertension - meds x 7 years Denies: Hx Coronary Artery Disease, Hx Heart Attack Pulmonary Medical History: Denies: Hx Asthma, Hx Bronchitis, Hx COPD, Hx Pneumonia Neurological Medical History: Reports: Hx Migraine. Denies: Hx Cerebrovascular Accident, Hx Seizures Renal/ Medical History: Denies: Hx Peritoneal Dialysis Musculoskeltal Medical History: Reports Hx Arthritis - osteo, Reports Hx Musculoskeletal Deformity, Reports Hx Musculoskeletal Trauma Skin Medical History: Reports Hx Cellulitis Past Surgical History: Reports: Hx Orthopedic Surgery - carpal tunnel both hands. Denies: Hx Pacemaker - Immunizations Hx Diphtheria, Pertussis, Tetanus Vaccination: Yes - 2005 Review of Systems - Review of Systems Notes: REVIEW OF SYSTEMS: CONSTITUTIONAL : Denies fever, chills, or sweats. Denies recent illness. EENT: Denies eye, ear, throat, or mouth pain or symptoms. Denies nasal or sinus congestion or discharge. Denies throat, tongue, or mouth swelling or difficulty swallowing. CARDIOVASCULAR: Denies chest pain. Denies palpitations or racing or irregular heart beat. Denies ankle edema. RESPIRATORY: Denies cough, cold, or chest congestion. Denies shortness of breath, difficulty breathing, or wheezing. GASTROINTESTINAL: Denies abdominal pain or distention. Denies nausea, vomiting , or diarrhea. Denies blood in vomitus, stools, or per rectum. Denies black, tarry stools. Denies constipation. GENITOURINARY: Denies difficulty urinating, painful urination, burning, frequency, blood in urine, or discharge. FEMALE GENITOURINARY: Denies vaginal bleeding, heavy or abnormal periods, irregular periods. Denies vaginal discharge or odor. MUSCULOSKELETAL: Denies back or neck pain or stiffness. Denies joint pain or swelling. SKIN: Bite to left hand third digit HEMATOLOGIC : Denies easy bruising or bleeding. LYMPHATIC: Denies swollen, enlarged glands. NEUROLOGICAL: Denies confusion or altered mental status. Denies passing out or loss of consciousness. Denies dizziness or lightheadedness. Denies headache. Denies weakness or paralysis or loss of use of either side. Denies problems with gait or speech. Denies sensory loss, numbness, or tingling. Denies seizures. PSYCHIATRIC: Denies anxiety or stress. Denies depression, suicidal ideation, or homicidal ideation. ALL OTHER SYSTEMS REVIEWED AND NEGATIVE. PHYSICAL EXAMINATION: GENERAL: Well-appearing, well-nourished and in no acute distress. HEAD: Atraumatic, normocephalic. EYES: Pupils equal round extraocular movements intact, conjunctiva are normal. ENT: Nares patent NECK: Normal range of motion LUNGS: No respiratory distress Musculoskeletal: Normal range of motion NEUROLOGICAL: Normal speech, normal gait. PSYCH: Normal mood, normal affect. SKIN: Third digit left hand 2 small puncture wounds are noted, the area is noted to be contained to just the distal phalanx on the pad with no feline, no paronychia, no signs of flexor tenosynovitis, there is no streaking up the arm, patient has full flexion extension of the digit with no difficulty Dictation was performed using [employer] voice recognition software Physical Exam - Vital signs Vitals: Temp Pulse Resp BP Pulse Ox 98.4 F 86 22 H 145/83 H 96 07/16/17 11:49 07/16/17 11:49 07/16/17 11:49 07/16/17 11:49 07/16/17 11:49 Course - Re-evaluation Re-evalutation: 07/16/17 16:24 Patient's lab work noted no significant abnormalities, she was given IV antibiotics here, I reevaluated the wound and spoke with the clinician who had seen the patient yesterday, he notes no change in the wound itself, therefore since it has not worsened in 24 hours I have low suspicion for any life- threatening issues however I will give the patient follow-up with our hand specialist as this may create an abscess given the source of the bite. Otherwise patient looks well is in no distress will be instructed to return immediately if there is any streaking fevers or any worsening concerns After performing a Medical Screening Examination, I estimate there is LOW risk for OPEN FRACTURE, COMPARTMENT SYNDROME, TENDON RUPTURE, ACUTE NEUROVASCULAR INJURY, or RETAINED FOREIGN BODY, thus I consider the discharge disposition reasonable. Also, there is no evidence or peritonitis, sepsis, or toxicity. I have reevaluated this patient multiple times and no significant life threatening changes are noted. The patient and I have discussed the diagnosis and risks, and we agree with discharging home with close follow-up with the understanding that symptoms and presentations can change. We also discussed returning to the Emergency Department immediately if new or worsening symptoms occur. We have discussed the symptoms which are most concerning (e.g., changing or worsening pain, fever, numbness, weakness, cool or painful digits) that necessitate immediate return. - Vital Signs Vital signs: Temp Pulse Resp BP Pulse Ox 98.3 F 78 20 151/87 H 97 07/16/17 14:28 07/16/17 14:28 07/16/17 14:28 07/16/17 14:28 07/16/17 14:28 - Laboratory Result Diagrams: 07/16/17 12:44 07/16/17 12:44 Laboratory results interpreted by me: 07/16/17 07/16/17 12:44 12:44 RDW 14.3 H Glucose 137 H Discharge - Discharge Clinical Impression: Cat bite of finger Qualifiers: Encounter type: subsequent encounter Qualified Code(s): S61.259D - Open bite of unspecified finger without damage to nail, subsequent encounter; W55.01XD - Bitten by cat, subsequent encounter; W55.01XD - Bitten by cat, subsequent encounter Condition: Stable Disposition: HOME, SELF-CARE Instructions: Animal Bites ([facility]) Referrals: MONIKA GO MD [Primary Care Provider] - Follow up as needed REG CORONA DO [ACTIVE STAFF] - Follow up tomorrow
[2017-07-16 14:32] VITALS: BP 151/87
== END 2017-07-16 14:32 | disposition home or self-care (01) ==
LOC: ER 11:45
DX: S61.253D Open bite of left middle finger without damage to nail, subsequent encounter (principal); W55.01XD Bitten by cat, subsequent encounter; I10 Essential (primary) hypertension; Z88.1 Allergy status to other antibiotic agents; Z88.0 Allergy status to penicillin
CPT/HCPCS: 99283; 96365; 36415; 85025; 80053; J0295

== ENCOUNTER 2017-12-14 10:35 | Emergency (ER) | payer OTHER ==
[2017-12-14 10:54] VITALS: BP 144/89
--- NOTE | 2017-12-14 11:14 | ER Document Report ---
ED Animal Bite - General Chief Complaint: Cat Bite Stated Complaint: CAT BITE Time Seen by Provider: 12/14/17 11:10 Mode of Arrival: Ambulatory Information source: Patient Notes: Chief complaint: Left hand bite History of complain:( obtained from----patient) 52 years old female was bitten by her own cat accidentally over the left hand 3 days ago, currently taking amoxicillin, is not getting better and also more painful therefore present to the ED. Cat is immunized. Denied any fever chills or other constitutional symptoms Onset: Sudden Duration: 3-4 days Severity: Mild to moderate Quality: Sharp Context: Cat bite Exacerbating factor and relieving factors: Any movement of the hand REVIEW OF SYSTEMS: CONSTITUTIONAL : Denies fever, chills, or sweats. Denies recent illness. EENT: Denies eye, ear, throat, or mouth pain or symptoms. Denies nasal or sinus congestion or discharge. Denies throat, tongue, or mouth swelling or difficulty swallowing. CARDIOVASCULAR: Denies chest pain. Denies palpitations or racing or irregular heart beat. Denies ankle edema. RESPIRATORY: Denies cough, cold, or chest congestion. Denies shortness of breath, difficulty breathing, or wheezing. GASTROINTESTINAL: Denies distention. Denies nausea, vomiting, or diarrhea. Denies blood in vomitus, stools, or per rectum. Denies black, tarry stools. Denies constipation. GENITOURINARY: Denies difficulty urinating, painful urination, burning, frequency, blood in urine, or discharge. FEMALE GENITOURINARY: Denies vaginal bleeding, heavy or abnormal periods, irregular periods. Denies vaginal discharge or odor. MUSCULOSKELETAL: Denies back or neck pain or stiffness. Denies joint pain or swelling. SKIN: Denies rash, lesions or sores. HEMATOLOGIC : Denies easy bruising or bleeding. LYMPHATIC: Denies swollen, enlarged glands. NEUROLOGICAL: Denies confusion or altered mental status. Denies passing out or loss of consciousness. Denies dizziness or lightheadedness. Denies headache. Denies weakness or paralysis or loss of use of either side. Denies problems with gait or speech. Denies sensory loss, numbness, or tingling. Denies seizures. PSYCHIATRIC: Denies anxiety or stress. Denies depression, suicidal ideation, or homicidal ideation. ALL OTHER SYSTEMS REVIEWED AND NEGATIVE. PHYSICAL EXAMINATION: GENERAL: Well-appearing, well-nourished and in no acute distress. HEAD: Atraumatic, normocephalic. EYES: Pupils equal round and reactive to light, extraocular movements intact, conjunctiva are normal. ENT: Nares patent, oropharynx clear without exudates. Moist mucous membranes. NECK: Normal range of motion, supple without lymphadenopathy LUNGS: Breath sounds clear to auscultation bilaterally and equal. No wheezes rales or rhonchi. HEART: Regular rate and rhythm without murmurs ABDOMEN: Soft, nontender, nondistended abdomen. No guarding, no rebound. No masses appreciated. Examination of genitals-deferred Musculoskeletal: Normal range of motion, no pitting or edema. No cyanosis. Examination of the left hand on the extensor surface for bite madden were noted with the middle scratch. Slight erythema no swelling. Tender. Movement of the fingers were within normal limit. NEUROLOGICAL: Cranial nerves grossly intact. Normal speech, normal gait. Normal sensory, motor exams PSYCH: Normal mood, normal affect. SKIN: Warm, Dry, normal turgor, no rashes or lesions noted. Dictation was performed using [employer] voice recognition software TRAVEL OUTSIDE OF THE [place] IN LAST 30 DAYS: No - HPI Notes: Dictated - Related Data Allergies/Adverse Reactions: cefdinir [From Spare [employer]] Allergy (Intermediate, Verified 12/14/17 10:44) rash, hives Penicillins Allergy (Intermediate, Verified 12/14/17 10:44) rash,hives Past Medical History - Social History Smoking Status: Never Smoker Frequency of alcohol use: None Lives with: Family Family History: Arthritis, CAD, COPD, CVA, DM, Hyperlipidemia, Hypertension, Malignancy - Past Medical History Cardiac Medical History: Reports: Hx Hypertension - meds x 7 years Denies: Hx Coronary Artery Disease, Hx Heart Attack Pulmonary Medical History: Denies: Hx Asthma, Hx Bronchitis, Hx COPD, Hx Pneumonia Neurological Medical History: Reports: Hx Migraine. Denies: Hx Cerebrovascular Accident, Hx Seizures Renal/ Medical History: Denies: Hx Peritoneal Dialysis Musculoskeletal Medical History: Reports Hx Arthritis - osteo, Reports Hx Musculoskeletal Deformity, Reports Hx Musculoskeletal Trauma Skin Medical History: Reports Hx Cellulitis Past Surgical History: Reports: Hx Orthopedic Surgery - carpal tunnel both hands. Denies: Hx Pacemaker - Immunizations Hx Diphtheria, Pertussis, Tetanus Vaccination: Yes - 2005 Review of Systems - Review of Systems Notes: Dictated Physical Exam - Vital signs Vitals: Temp Pulse Resp BP Pulse Ox 98.5 F 89 16 144/89 H 99 12/14/17 10:53 12/14/17 10:53 12/14/17 10:53 12/14/17 10:53 12/14/17 10:53 - Notes Notes: Dictated Course - Vital Signs Vital signs: Temp Pulse Resp BP Pulse Ox 98.5 F 89 16 144/89 H 99 12/14/17 10:53 12/14/17 10:53 12/14/17 10:53 12/14/17 10:53 12/14/17 10:53 Discharge - Discharge Clinical Impression: Pasteurella cellulitis due to cat bite Condition: Fair Disposition: HOME, SELF-CARE Instructions: Animal Bites ([facility]) Prescriptions: Doxycycline Hyclate 100 mg PO BID #20 capsule
== END 2017-12-14 11:16 | disposition home or self-care (01) ==
LOC: ER 10:35
DX: L03.114 Cellulitis of left upper limb (principal); W55.01XA Bitten by cat, initial encounter; Y92.009 Unspecified place in unspecified non-institutional (private) residence as the place of occurrence of the external cause; Z88.0 Allergy status to penicillin
CPT/HCPCS: 99283

== ENCOUNTER 2018-02-08 08:06 | Emergency (ER) | payer OTHER ==
--- NOTE | 2018-02-08 08:18 | ER Document Report ---
ED General - General Chief Complaint: Toothache Stated Complaint: FACIAL SWELLING Time Seen by Provider: 02/08/18 08:18 Mode of Arrival: Ambulatory Information source: Patient TRAVEL OUTSIDE OF THE U.[place] IN LAST 30 DAYS: No - HPI Notes: 52-year-old female presents to the ED with complaints of right-sided facial swelling status post pain diagnosed with dental infection to her right lower jaw by her dentist yesterday. Was placed on clindamycin 300 mg every 6 for 7 days as well as [place] 7.5 325 mg for pain. Prior to that patient was taking Levaquin daily from an old prescription due to having bronchitis a couple weeks ago. Patient states she is having a "racing heart"that comes and goes since yesterday. She is concerned about her potassium as well as other electrolytes. Patient to contact her dentist advised to quit the ED for IV antibiotics. Patient does have blood pressure issues, forgot to take her lisinopril today. Denies fevers, chills, chest pain,palpitations, shortness of breath, dyspnea, nausea, vomiting, diarrhea, abdominal pain, hematuria,blurred vision, double vision, loss of vision, speech changes, LH, dizziness, syncope, headaches, wheezing, ST, URI, neck pain, weakness, bowel or bladder dysfunction, saddle anesthesia, numbness or tingling in bilateral upper or lower extremities equally, muscle paralysis, weakness in bilateral upper or lower extremities equally or rash. - Related Data Allergies/Adverse Reactions: cefdinir [From [employer]] Allergy (Intermediate, Verified 02/08/18 08:07) rash, hives Penicillins Allergy (Intermediate, Verified 02/08/18 08:07) rash,hives Past Medical History - General Information source: Patient - Social History Smoking Status: Current Every Day Smoker Family History: Arthritis, CAD, COPD, CVA, DM, Hyperlipidemia, Hypertension, Malignancy - Past Medical History Cardiac Medical History: Reports: Hx Hypertension - meds x 7 years Denies: Hx Coronary Artery Disease, Hx Heart Attack Pulmonary Medical History: Denies: Hx Asthma, Hx Bronchitis, Hx COPD, Hx Pneumonia Neurological Medical History: Reports: Hx Migraine. Denies: Hx Cerebrovascular Accident, Hx Seizures Renal/ Medical History: Denies: Hx Peritoneal Dialysis Musculoskeletal Medical History: Reports Hx Arthritis - osteo, Reports Hx Musculoskeletal Deformity, Reports Hx Musculoskeletal Trauma Skin Medical History: Reports Hx Cellulitis Past Surgical History: Reports: Hx Orthopedic Surgery - carpal tunnel both hands. Denies: Hx Pacemaker - Immunizations Hx Diphtheria, Pertussis, Tetanus Vaccination: Yes - 2005 Review of Systems - Review of Systems Constitutional: No symptoms reported EENT: See HPI Cardiovascular: See HPI Respiratory: No symptoms reported Gastrointestinal: No symptoms reported Genitourinary: No symptoms reported Female Genitourinary: No symptoms reported Musculoskeletal: No symptoms reported Skin: No symptoms reported Hematologic/Lymphatic: No symptoms reported Neurological/Psychological: No symptoms reported Physical Exam - Vital signs Vitals: Temp Pulse Resp BP Pulse Ox 98.2 F 79 16 173/104 H 98 02/08/18 08:11 02/08/18 08:11 02/08/18 08:11 02/08/18 08:11 02/08/18 08:11 - Notes Notes: PHYSICAL EXAMINATION: GENERAL: Well-appearing, well-nourished and in no acute distress. HEAD: Atraumatic, normocephalic. EYES: Pupils equal round and reactive to light, extraocular movements intact, conjunctiva are normal. ENT: noted slight right facial swelling. Nares patent, oropharynx clear without exudates. Moist mucous membranes. #29 gingiva with swelling, erythema and induration. No drainage or open wounds. No fluctuance. No facial swelling. Poor oral dentition, right lower jaw with mild dental caries. hadenopathy LUNGS: Breath sounds clear to auscultation bilaterally and equal. No wheezes rales or rhonchi. HEART: Regular rate and rhythm without murmurs ABDOMEN: Soft, nontender, nondistended abdomen. No guarding, no rebound. No masses appreciated. Female : deferred Musculoskeletal: Normal range of motion, no pitting or edema. No cyanosis. NEUROLOGICAL: Cranial nerves grossly intact. Normal speech, normal gait. Normal sensory, motor exams PSYCH: Normal mood, normal affect. SKIN: Warm, Dry, normal turgor, no rashes or lesions noted. Course - Re-evaluation Re-evalutation: 52-year-old female afebrile hypertensive but patient did forget to take her blood pressure meds today no feelings of palpitations for 2 days presents to the ED for concerns of right-sided facial swelling after being started on clindamycin and [place] due to dental caries which was prescribed by her dentist yesterday. Was advised that it is so to the ED if she has any facial swelling for IV antibiotics. CBC negative for leukocytosis or anemia, CMP negative for hepatic or renal dysfunction, no electrolyte at this disturbances. troponins negative. EKG negative for STEMI or ST segment changes. CT face with contrast negative for any acute abscess or findings by radiology. Patient given IV clindamycin due to her allergies to penicillin. Heart score less than 3, which has a risk of acute myocardial infarction is 0.9-1.7%. Patient given IV fluids. Presentation is most consistent with likely an infected tooth. Given started on antibiotics Airway is patent. Vitals within normal limits. Patient is able swallow without any difficulty. There is no significant facial swelling. No evidence of Alexandre angina, apical abscess, or airway obstruction. Patient will be started on antibiotics. I've instructed to follow-up with dentistry as earliest ability for definitive management. At this time will discharge with return precautions and follow-up recommendations. Verbal discharge instructions given a the bedside and opportunity for questions given. Medication warnings reviewed. Patient is in agreement with this plan and has verbalized understanding of return precautions and the need for primary care follow-up in the next 24-72 hours. - Vital Signs Vital signs: Temp Pulse Resp BP Pulse Ox 98.1 F 85 24 H 150/92 H 97 02/08/18 13:26 02/08/18 13:26 02/08/18 13:26 02/08/18 13:26 02/08/18 13:26 - Laboratory Result Diagrams: 02/08/18 09:30 02/08/18 09:30 Laboratory results interpreted by me: 02/08/18 02/08/18 02/08/18 09:30 09:30 09:30 RDW 14.2 H Chloride 110 H Salicylates < 1.0 L Acetaminophen < 10 L Discharge - Discharge Clinical Impression: Dental caries, Facial swelling, Palpitations Condition: Stable Disposition: HOME, SELF-CARE Instructions: [facility], Clindamycin ([facility]), Dentist, Oral Narcotic Medication ([facility]), Palpitations (Irregular or Rapid Heartrate) ([facility]), Toothache ([facility]) Additional Instructions: Return immediately for any new or worsening symptoms. Follow up with primary care provider, call tomorrow to make followup appointment. Forms: Return to Work Referrals: MONIKA GO MD [Primary Care Provider] - Follow up tomorrow NUVIA ECHAVARRIA PA [NO LOCAL MD] - Follow up tomorrow
[2018-02-08] MEDS ORDERED: CLINDAMYCIN 900 MG/D5W RTU 900 MG/50 ML RTUPB IV ONE (09:39)
[2018-02-08] MEDS ORDERED: MORPHINE SULFATE 10 MG/ML INJ IV ONE (09:42)
[2018-02-08 09:47] LABS: ABSOLUTE EOSINOPHILS # (AUTO) 0.2 10^3/uL (0.0-0.6); ABSOLUTE LYMPHOCYTES (AUTO) 2.2 10^3/uL (0.5-4.7); ABSOLUTE MONOCYTES (AUTO) 0.6 10^3/uL (0.1-1.4); ABSOLUTE NEUT (AUTO) 3.4 10^3/uL (1.7-8.2); BASOPHILS % (AUTO) 0.7 % (0-2); EOSINOPHILS % (AUTO) 2.5 % (0-6); HEMATOCRIT 38.1 % (36.0-47.0); HEMOGLOBIN 12.6 g/dL (12.0-15.5); LYMPHOCYTES % (AUTO) 34.8 % (13-45); MEAN CORPUSCULAR HGB CONC 33.1 g/dL (32.0-36.0); MEAN CORPUSCULAR VOLUME 94 fl (80-97); MONOCYTES % (AUTO) 9.1 % (3-13); PLATELET COUNT 264 10^3/uL (150-450); RED BLOOD COUNT 4.07 10^6/uL (3.72-5.28); RED CELL DISTRIBUTION WIDTH 14.2 % (11.5-14.0); SEGMENTED NEUTROPHILS % (AUTO) 52.9 % (42-78); TOTAL CELLS COUNTED % (AUTO) 100 %; WHITE BLOOD COUNT 6.5 10^3/uL (4.0-10.5)
[2018-02-08 10:12] LABS: ALANINE AMINOTRANSFERASE 23 U/L (9-52); ALBUMIN 3.8 g/dL (3.5-5.0); ALKALINE PHOSPHATASE 54 U/L (38-126); ANION GAP 9 (5-19); ASPARTATE AMINO TRANSFERASE 18 U/L (14-36); BILIRUBIN,DIRECT 0.2 mg/dL (0.0-0.4); BILIRUBIN,TOTAL 0.6 mg/dL (0.2-1.3); BLOOD UREA NITROGEN 13 mg/dL (7-20); CARBON DIOXIDE 24 mmol/L (22-30); CHLORIDE 110 mmol/L (98-107); CREATINE KINASE 73 U/L (30-135); GLUCOSE 100 mg/dL (75-110); PHOSPHORUS 4.2 mg/dL (2.5-4.5); POTASSIUM 3.9 mmol/L (3.6-5.0); SODIUM 143.4 mmol/L (137-145); TOTAL PROTEIN 6.5 g/dL (6.3-8.2)
[2018-02-08 10:13] LABS: ACETAMINOPHEN < 10 ug/mL (10-30); SALICYLATE < 1.0 mg/dL (2.0-20.0)
[2018-02-08 10:20] LABS: CREATINE KINASE MB 0.73 ng/mL (<4.55)
[2018-02-08 10:21] LABS: TROPONIN I < 0.012 ng/mL
--- NOTE | 2018-02-08 11:01 | RADIOLOGY REPORT (SQ) ---
EXAM DESCRIPTION: CT FACIAL AREA WITH COMPLETED DATE/TIME: 02/08/2018 10:31 am REASON FOR STUDY: left facial swelling/on abx COMPARISON: 06/05/2016 TECHNIQUE: Post contrast images through the facial bones and orbits windowed for bone and soft tissu e. Additional coronal and sagittal reconstructed images reviewed. All images stored on PACS. All CT scanners at this facility use dose modulation, iterative reconstruction, and/or weight based d osing when appropriate to reduce radiation dose to as low as reasonably achievable (ALARA). [facility]: Dose Right [facility]: CareDose [facility]: Dose Right [facility]: Teradose 4D [facility]: [facility] CONTRAST TYPE AND DOSE: contrast/concentration: Isovue 350.00 mg/ml; Total Contrast Delivered: 75.0 ml; Total Saline Delivered: 55.0 ml RENAL FUNCTION: None required. The patient is less than 50 years old. RADIATION DOSE: CT Rad equipment meets quality standard of care and radiation dose reduction techniq ues were employed. CTDIvol: 30.4 mGy. DLP: 591 mGy-cm. . LIMITATIONS: None. FINDINGS: FACIAL BONES: No fracture or bone lesion. ORBITS: Intact. No fracture. Symmetric intact globes and retroorbital soft tissues. PARANASAL SINUSES: Clear. No significant mucosal thickening, mass or fluid. No nasal polyps. Maxilla ry sinus outlets are patent. SOFT TISSUES: No mass or edema. No abnormal enhancement. INFERIOR BRAIN: Limited view. No acute findings. OTHER: No other significant finding. IMPRESSION: No CT findings to explain left-sided facial swelling. No evident soft tissue edema or f luid collection. TECHNICAL DOCUMENTATION: JOB ID: [id number] Quality ID # [id number]: Final reports with documentation of one or more dose reduction techniques (e.g., Au tomated exposure control, adjustment of the mA and/or kV according to patient size, use of iterative reconstruction technique) 2010 [employer]- All Rights Reserved Reading location - IP/workstation name: [email or web address]
--- NOTE | 2018-02-08 11:09 | RADIOLOGY REPORT (SQ) ---
EXAM DESCRIPTION: CHEST 2 VIEWS COMPLETED DATE/TIME: 02/08/2018 10:58 am REASON FOR STUDY: palpitations COMPARISON: Two-view chest 06/16/2010 EXAM PARAMETERS: NUMBER OF VIEWS: two views TECHNIQUE: Digital Frontal and Lateral radiographic views of the chest acquired. RADIATION DOSE: NA LIMITATIONS: Low lung volumes FINDINGS: LUNGS AND PLEURA: No opacities, masses or pneumothorax. No pleural effusion. MEDIASTINUM AND HILAR STRUCTURES: No masses or contour abnormalities. HEART AND VASCULAR STRUCTURES: Heart normal size. No evidence for failure. BONES: No acute findings. HARDWARE: None in the chest. OTHER: No other significant finding. IMPRESSION: NO ACUTE RADIOGRAPHIC FINDING IN THE CHEST. TECHNICAL DOCUMENTATION: JOB ID: [id number] [employer]- All Rights Reserved Reading location - IP/workstation name: [email or web address]
[2018-02-08 13:28] VITALS: BP 150/92
--- NOTE | 2018-02-08 13:38 | EKG REPORT ---
SEVERITY:- NORMAL ECG - SINUS RHYTHM : Confirmed by: France Sosa MD 08-Feb-2018 13:37:58
== END 2018-02-08 13:37 | disposition home or self-care (01) ==
LOC: ER 08:06
DX: K02.9 Dental caries, unspecified (principal); R00.2 Palpitations; R22.0 Localized swelling, mass and lump, head; I10 Essential (primary) hypertension; Z88.0 Allergy status to penicillin
CPT/HCPCS: 93005; 99284; 96375; 96365; 36415; 82553; 82550; 83735; 84100; 80307 ×2; 85025; 80053; 84484; 83605; 71046; 70487; 93010; J2270

== ENCOUNTER → 2018-12-10 | Outpatient (CLI) | payer OTHER ==
--- NOTE | 2018-12-10 12:33 | RADIOLOGY REPORT (SQ) ---
EXAM DESCRIPTION: MRI RT UPPER JOINT WITHOUT COMPLETED DATE/TIME: 12/10/2018 8:23 am REASON FOR STUDY: ROTATOR CUFF TEAR, RHEUMATOID ARTHRITIS (M06.9) M25.511 PAIN IN RIGHT SHOULDER COMPARISON: None. TECHNIQUE: Right shoulder images acquired and stored on PACS. Multiplanar imaging to include fat sen sitive sequences such as T1, water sensitive sequences such as FST2/STIR, cartilage sensitive sequenc es such as FSPD/gradient-echo sequences. LIMITATIONS: None. FINDINGS: BONE MARROW AND CORTEX: No worrisome bone lesions or marrow replacement. No occult fractur es. JOINT OR BURSAL EFFUSION: Mild inflammatory changes in the subacromial/subdeltoid soft tissue. No si gnificant bursal fluid. GLENO-HUMERAL ARTICULATION: Intact. ACROMION AND AC JOINT: Type 2 acromion. No down-sloping or distal spur. Sub-acromial space maintain ed. No significant AC joint arthropathy. ROTATOR CUFF AND INTERVAL: No significant tear. No muscle atrophy. No rotator interval tear. No rotator interval thickening to suggest adhesive capsulitis. LABRUM AND BICEPS LABRAL COMPLEX: Intact. No labral tear. Intra-articular long-head biceps tendon n ormal. Distal biceps in normal location in bicipital groove. REMAINDER OF LABRUM AND IGHL : No gross tear or paralabral cyst formation. Labral evaluation is less than optimal without joint distention. No thickening of IGHL to suggest adhesive capsulitis. PERIARTICULAR AND ADJACENT SOFT TISSUES: No masses or abnormal nodes. OTHER: No other significant finding. IMPRESSION: No rotator cuff tear. Nonspecific inflammatory changes in the subacromial/ subdeltoid s oft tissues. No significant bursal fluid collection. TECHNICAL DOCUMENTATION: JOB ID: [id number] [employer]- All Rights Reserved Reading location - IP/workstation name: [email or web address]
== END ==
LOC: RAD 07:09
PROVIDERS: ATTEND Internal Medicine Rheumatology
DX: M75.101 Unspecified rotator cuff tear or rupture of right shoulder, not specified as traumatic (principal)

== ENCOUNTER 2019-02-05 11:37 | Emergency (ER) | payer OTHER ==
[2019-02-05 11:54] VITALS: BP 150/93
[2019-02-05] MEDS ORDERED: KETOROLAC TROMETHAMINE 60 MG/2 ML SDV IM ONE (11:56)
[2019-02-05] MEDS ORDERED: DEXAMETHASONE SOD PHOS INJ 10 MG/1 ML VIAL IM ONE (11:56)
--- NOTE | 2019-02-05 12:00 | ER Document Report ---
HPI - HPI Patient complains to provider of: Back and hip pain Time Seen by Provider: 02/05/19 11:49 Onset: Other - Since Thanksgi Onset/Duration: Persistent Quality of pain: Achy Pain Level: 5 Context: 53-year-old female with history of rheumatoid and osteoarthritis presents today with complaints of low back pain hip pain with pain radiating down her right leg.. Reports she has had the symptoms since Thanks they have just been worsening. She reports she called her primary care provider Dr. Osman and he will not be able to see her until March 04. Patient reports when she usually gets this bad they give her steroid injection and a Toradol injection. She denies other symptoms such as fever vomiting diarrhea. Denies trauma. Denies pain with void. Denies urinary bowel incontinence or retention. Associated Symptoms: None Exacerbated by: Denies Relieved by: Denies Similar symptoms previously: Yes Recently seen / treated by doctor: Yes - REPRODUCTIVE Reproductive: DENIES: : Past Medical History - General Information source: Patient - Social History Smoking Status: Never Smoker Chew tobacco use (# tins/day): No Drug Abuse: None Family History: Arthritis, CAD, COPD, CVA, DM, Hyperlipidemia, Hypertension, Malignancy Patient has suicidal ideation: No Patient has homicidal ideation: No - Past Medical History Cardiac Medical History: Reports: Hx Hypertension - meds x 7 years Denies: Hx Coronary Artery Disease, Hx Heart Attack Pulmonary Medical History: Denies: Hx Asthma, Hx Bronchitis, Hx COPD, Hx Pneumonia Neurological Medical History: Reports: Hx Migraine. Denies: Hx Cerebrovascular Accident, Hx Seizures Renal/ Medical History: Denies: Hx Peritoneal Dialysis Musculoskeletal Medical History: Reports Hx Arthritis - OA, RA, Reports Hx Musculoskeletal Deformity, Reports Hx Musculoskeletal Trauma Skin Medical History: Reports Hx Cellulitis Past Surgical History: Reports: Hx Orthopedic Surgery - carpal tunnel both hands. Denies: Hx Pacemaker - Immunizations Hx Diphtheria, Pertussis, Tetanus Vaccination: Yes - 2005 Vertical Provider Document - CONSTITUTIONAL Agree With Documented VS: Yes Exam Limitations: No Limitations General Appearance: WD/WN, No Apparent Distress - INFECTION CONTROL TRAVEL OUTSIDE OF THE [place] IN LAST 30 DAYS: No - HEENT HEENT: Atraumatic, Normocephalic - NECK Neck: Supple - RESPIRATORY Respiratory: Breath Sounds Normal, No Respiratory Distress - CARDIOVASCULAR Cardiovascular: Regular Rate, Regular Rhythm - GI/ABDOMEN Gastrointestinal: Abdomen Soft, Abdomen Non-Tender - BACK Back: Normal Inspection - No obvious deformity no erythema no swelling no warmth no pain with palpation good distal movement and sensation - MUSCULOSKELETAL/EXTREMETIES Musculoskeletal/Extremeties: PRATEEK TRUJILLO - NEURO Level of Consciousness: Awake, Alert, Appropriate Motor/Sensory: No Motor Deficit - DERM Integumentary: Warm, Dry Course - Re-evaluation Re-evalutation: 02/05/19 12:00 Patient was instructed on steroid injection and Toradol. She was also instructed to follow-up with pain management and Dr. Osman within the week. She verbalized understanding to all instructions. Low suspicion for any meningitis, fracture, expanding/ruptured AAA, cauda equina syndrome, epidural mass lesion/abscess, herniated disc causing severe spinal stenosis, or other systemic infection at this time. Patient is aware that this condition can change from initial presentation and that she needs monitor symptoms closely for any acute changes. - Vital Signs Vital signs: Temp Pulse Resp BP Pulse Ox 97.4 F 88 16 150/93 H 98 02/05/19 11:44 02/05/19 11:44 02/05/19 11:44 02/05/19 11:44 02/05/19 11:44 Discharge - Discharge Clinical Impression: chronic back pain, hip pain Condition: Stable Disposition: HOME, SELF-CARE Instructions: Low Back Pain ([facility]), Steroid Medication Injection, Toradol Injection ([facility]) Additional Instructions: *You have been evaluated for chronic back and hip pain related to your arthritis *You have been treated with an injection of Toradol and Decadron *Take your medications as prescribed *Follow up with Dr. Osman within a week, follow-up with pain management *Return to ED for worsening condition, changes, needs Referrals: LA OSMAN MD [ACTIVE STAFF] - Follow up in 1 week
== END 2019-02-05 12:36 | disposition home or self-care (01) ==
LOC: ER 11:37
DX: M54.9 Dorsalgia, unspecified (principal); G89.29 Other chronic pain; M25.551 Pain in right hip; M79.604 Pain in right leg; Z79.899 Other long term (current) drug therapy; I10 Essential (primary) hypertension
CPT/HCPCS: 99283; 96372; J1885; J1100

== ENCOUNTER → 2019-02-18 | Outpatient (CLI) | payer OTHER ==
--- NOTE | 2019-02-18 12:51 | RADIOLOGY REPORT (SQ) ---
EXAM DESCRIPTION: CHEST PA/LATERAL COMPLETED DATE/TIME: 02/18/2019 12:43 pm REASON FOR STUDY: COUGH;WHEEZING COMPARISON: 02/08/2018 EXAM PARAMETERS: NUMBER OF VIEWS: two views TECHNIQUE: Digital Frontal and Lateral radiographic views of the chest acquired. RADIATION DOSE: NA LIMITATIONS: none FINDINGS: LUNGS AND PLEURA: No opacities, masses or pneumothorax. No pleural effusion. MEDIASTINUM AND HILAR STRUCTURES: No masses or contour abnormalities. HEART AND VASCULAR STRUCTURES: Heart normal size. No evidence for failure. BONES: No acute findings. HARDWARE: None in the chest. OTHER: No other significant finding. IMPRESSION: NO SIGNIFICANT RADIOGRAPHIC FINDING IN THE CHEST. TECHNICAL DOCUMENTATION: JOB ID: [id number] [employer]- All Rights Reserved Reading location - IP/workstation name: [email or web address]
== END ==
LOC: OD 12:32
PROVIDERS: ATTEND Internal Medicine
DX: J20.9 Acute bronchitis, unspecified (principal); J45.40 Moderate persistent asthma, uncomplicated
CPT/HCPCS: 71046

== ENCOUNTER → 2019-03-14 | Day surgery (SDC) | payer OTHER ==
[~2019-03-14] MED LIST: LIDOCAINE 1%/EPINEPHRINE INJ 20 ML VIAL ONE
--- NOTE | 2019-03-14 10:49 | Discharge Summary ---
Discharge Summary (SDC) - Discharge Final Diagnosis: Microcalcifications 5 o'clock position right breast Date of Surgery: 03/14/19 Discharge Date: 03/14/19 Condition: Good Treatment or Instructions: Wear supportive bra; may take Tylenol, Motrin or and home medications as indicated. Patient follow-up with [facility] in 1 to 2 weeks. Referrals: YANNA LIRA MD [Primary Care Provider] - Discharge Diet: As Tolerated Discharge Activity: Activity As Tolerated Home Care Assistance: None Needed Report the Following to Your Physician Immediately: Shortness of Breath, Increase in Pain, Fever over 101 Degrees
--- NOTE | 2019-03-14 10:54 | Operative Report ---
Operative Report DATE OF SURGERY: 03/14/19 PREOPERATIVE DIAGNOSIS: 1. Suspicious cluster microcalcifications right breast, 5 o'clock position. 2. Indeterminant cluster of microcalcifications at 11 o'clock position right breast POSTOPERATIVE DIAGNOSIS: Same OPERATION: 1. Stereotactically directed incision mammotomy core biopsies right breast 5 o'clock position microcalcifications. 2. Interpretation of intraoperative mammography. 3. Interpretation of the specimen radiograph SURGEON: YANNA LIRA ANESTHESIA: Local TISSUE REMOVED OR ALTERED: core bxs right breast COMPLICATIONS: none ESTIMATED BLOOD LOSS: scant INTRAOPERATIVE FINDINGS: See below PROCEDURE: Patient was seen in preop holding area, then taken to the stereotactic room in the radiology department where the right breast was placed to compression. We focused on the microcalcifications at the 5 o'clock position of the right breast. We approached the breast from the lateral position. The right breast was placed into compression, with +15 and -15degree images were obtained. We prepped the surface of the breast with Betadine, anesthetized the skin with 1% plain lidocaine. A joelle was made the skin skin with 11 blade, and mammotome was advanced to the appropriate depth. Pre-and post fire films showed good alignment between the mammotome and the microcalcifications. We now obtain approximately 10 cores in a circumferential fashion moving adequate specimens from the right breast. The specimens were placed in a Christian dish and imaged in the procedure room using the specimen radiograph machine. This demonstrated retention of microcalcifications. A return to the right breast, placed a clip marker into the biopsy cavity, remove the introducer sheath, and obtained concluding film demonstrating retention of clip in the cavity. An attempt was made to localize the very subtle microcalcifications in the 11 o'clock position of the same breast but these were unsuccessful. We felt that a surveillance approach would be appropriate and this was discussed with the patient. Patient tolerated procedure well. Discharge instructions provided.
--- NOTE | 2019-03-18 13:18 | RADIOLOGY REPORT (SQ) ---
EXAM DESCRIPTION: STEREO BREAST BX; STEREO BREAST BX EACH ADDT'L; BREAST SPECIMEN; RIGHT DIG DX MAMM O NO CHG COMPLETED DATE/TIME: 03/18/2019 12:03 pm; 03/18/2019 11:32 am; 03/18/2019 8:39 am; 03/14/2019 10:53 am REASON FOR STUDY: MAMMOGRAPHIC MICROCALCIFICATION FOUND ON DX IMAGING OF BRST; R92.0 MAMMOGRAPHIC [place] CROCALCIFICATION FOUND ON DIAGNOSTIC IMAGING OF BREAST; CALCS; POST RT STEREO R92.0 MAMMOGRAPHIC MONISHA ROCALCIFICATION FOUND ON DX IMAGING OF COMPARISON: ORC films LIMITATIONS: None. PROCEDURE: Vacuum-assisted stereotactic-guided biopsy of the lesion in the right breast targeted and performed by Dr. Owens, the operating surgeon. Procedure and post-procedure imaging interpreted by a radiologist. Using stereotactic guidance, a vacuum-assisted core biopsy of the targeted lesion was performed. A p ellet clip was deployed at the biopsy site. Post procedure image reveals the clip at the biopsy site . TECHNIQUE: Images from the stereotactic unit acquired during the procedure. Specimen radiography performed. Yes. Post- procedure image acquired post-clip placement. Yes. Post procedure 2 view mammograms performed in the mammography suite for clip placement. Yes. FINDINGS: SPECIMEN RADIOGRAPH:Calcifications identified.. POST PROCEDURE MAMMOGRAMS FOR MARKER PLACEMENT: Yes. POST PROCEDURE MAMMOGRAM: Clip is in expected location. No significant hematoma. PATHOLOGY: Fibroadenoma with stromal calcifications. No carcinoma in situ or invasive carcinoma is i dentified CONCORDANT: Yes. The operating surgeon was notified of the findings. IMPRESSION: SUCCESSFUL STEREOTACTIC-GUIDED BIOPSY OF LESION IN THE RIGHT BREAST. BIOPSY RESULTS ARE CONCORDANT WITH IMAGING FINDINGS. FOLLOW-UP: RETURN TO SCREENING COMMENT: BI-RADS 2, benign biopsy TECHNICAL DOCUMENTATION: JOB ID: [id number] 2010 [employer]- All Rights Reserved Reading location - IP/workstation name: [email or web address]
--- NOTE | 2019-03-18 13:18 | RADIOLOGY REPORT (SQ) ---
EXAM DESCRIPTION: STEREO BREAST BX; STEREO BREAST BX EACH ADDT'L; BREAST SPECIMEN; RIGHT DIG DX MAMM O NO CHG COMPLETED DATE/TIME: 03/18/2019 12:03 pm; 03/18/2019 11:32 am; 03/18/2019 8:39 am; 03/14/2019 10:53 am REASON FOR STUDY: MAMMOGRAPHIC MICROCALCIFICATION FOUND ON DX IMAGING OF BRST; R92.0 MAMMOGRAPHIC [place] CROCALCIFICATION FOUND ON DIAGNOSTIC IMAGING OF BREAST; CALCS; POST RT STEREO R92.0 MAMMOGRAPHIC MONISHA ROCALCIFICATION FOUND ON DX IMAGING OF COMPARISON: ORC films LIMITATIONS: None. PROCEDURE: Vacuum-assisted stereotactic-guided biopsy of the lesion in the right breast targeted and performed by Dr. Owens, the operating surgeon. Procedure and post-procedure imaging interpreted by a radiologist. Using stereotactic guidance, a vacuum-assisted core biopsy of the targeted lesion was performed. A p ellet clip was deployed at the biopsy site. Post procedure image reveals the clip at the biopsy site . TECHNIQUE: Images from the stereotactic unit acquired during the procedure. Specimen radiography performed. Yes. Post- procedure image acquired post-clip placement. Yes. Post procedure 2 view mammograms performed in the mammography suite for clip placement. Yes. FINDINGS: SPECIMEN RADIOGRAPH:Calcifications identified.. POST PROCEDURE MAMMOGRAMS FOR MARKER PLACEMENT: Yes. POST PROCEDURE MAMMOGRAM: Clip is in expected location. No significant hematoma. PATHOLOGY: Fibroadenoma with stromal calcifications. No carcinoma in situ or invasive carcinoma is i dentified CONCORDANT: Yes. The operating surgeon was notified of the findings. IMPRESSION: SUCCESSFUL STEREOTACTIC-GUIDED BIOPSY OF LESION IN THE RIGHT BREAST. BIOPSY RESULTS ARE CONCORDANT WITH IMAGING FINDINGS. FOLLOW-UP: RETURN TO SCREENING COMMENT: BI-RADS 2, benign biopsy TECHNICAL DOCUMENTATION: JOB ID: [id number] 2010 [employer]- All Rights Reserved Reading location - IP/workstation name: [email or web address]
== END ==
LOC: RAD 08:52
PROVIDERS: ATTEND Surgery
DX: D24.1 Benign neoplasm of right breast (principal); N60.11 Diffuse cystic mastopathy of right breast; R92.0 Mammographic microcalcification found on diagnostic imaging of breast; I10 Essential (primary) hypertension; Z79.899 Other long term (current) drug therapy; Z80.0 Family history of malignant neoplasm of digestive organs; E66.9 Obesity, unspecified; Z01.419 Encounter for gynecological examination (general) (routine) without abnormal findings
CPT/HCPCS: 88305 ×2; 88342; 19081; J3490

== ENCOUNTER → 2019-03-15 | Outpatient (CLI) | payer OTHER ==
--- NOTE | 2019-03-18 13:18 | WOMENS IMAGING REPORT ---
EXAM DESCRIPTION: STEREO BREAST BX; STEREO BREAST BX EACH ADDT'L; BREAST SPECIMEN; RIGHT DIG DX MAMM O NO CHG COMPLETED DATE/TIME: 03/18/2019 12:03 pm; 03/18/2019 11:32 am; 03/18/2019 8:39 am; 03/14/2019 10:53 am REASON FOR STUDY: MAMMOGRAPHIC MICROCALCIFICATION FOUND ON DX IMAGING OF BRST; R92.0 MAMMOGRAPHIC [place] CROCALCIFICATION FOUND ON DIAGNOSTIC IMAGING OF BREAST; CALCS; POST RT STEREO R92.0 MAMMOGRAPHIC MONISHA ROCALCIFICATION FOUND ON DX IMAGING OF COMPARISON: ORC films LIMITATIONS: None. PROCEDURE: Vacuum-assisted stereotactic-guided biopsy of the lesion in the right breast targeted and performed by Dr. Owens, the operating surgeon. Procedure and post-procedure imaging interpreted by a radiologist. Using stereotactic guidance, a vacuum-assisted core biopsy of the targeted lesion was performed. A p ellet clip was deployed at the biopsy site. Post procedure image reveals the clip at the biopsy site . TECHNIQUE: Images from the stereotactic unit acquired during the procedure. Specimen radiography performed. Yes. Post- procedure image acquired post-clip placement. Yes. Post procedure 2 view mammograms performed in the mammography suite for clip placement. Yes. FINDINGS: SPECIMEN RADIOGRAPH:Calcifications identified.. POST PROCEDURE MAMMOGRAMS FOR MARKER PLACEMENT: Yes. POST PROCEDURE MAMMOGRAM: Clip is in expected location. No significant hematoma. PATHOLOGY: Fibroadenoma with stromal calcifications. No carcinoma in situ or invasive carcinoma is i dentified CONCORDANT: Yes. The operating surgeon was notified of the findings. IMPRESSION: SUCCESSFUL STEREOTACTIC-GUIDED BIOPSY OF LESION IN THE RIGHT BREAST. BIOPSY RESULTS ARE CONCORDANT WITH IMAGING FINDINGS. FOLLOW-UP: RETURN TO SCREENING COMMENT: BI-RADS 2, benign biopsy TECHNICAL DOCUMENTATION: JOB ID: [id number] 2010 [employer]- All Rights Reserved Reading location - IP/workstation name: [email or web address]
== END ==
LOC: WI 09:58
PROVIDERS: ATTEND Surgery
DX: R92.0 Mammographic microcalcification found on diagnostic imaging of breast (principal)
CPT/HCPCS: 76098

== ENCOUNTER 2019-04-11 05:45 | Day surgery (SDC) | payer OTHER ==
[2019-04-11] MEDS ORDERED: LIDOCAINE 1%/EPINEPHRINE INJ 20 ML VIAL ONE (07:07)
[2019-04-11] MEDS ORDERED: LIDOCAINE 2% JELLY 30 ML TUBE ONE (07:07)
[2019-04-11] MEDS ORDERED: ONDANSETRON HCL INJ/PF 4 MG/2 ML SDV ONE (07:14)
[2019-04-11] MEDS ORDERED: FENTANYL CITRATE INJ/PF 100 MCG/2 ML AMPUL ONE (07:14)
[2019-04-11] MEDS ORDERED: MIDAZOLAM 2 MG/2 ML INJ ONE (07:14)
[2019-04-11] MEDS ORDERED: DEXAMETHASONE SOD PHOSPHATE INJ 4 MG/1 ML VIAL ONE (07:14)
[2019-04-11] MEDS ORDERED: HYDROMORPHONE HCL INJ/PF 2 MG/ML AMPULE ONE (07:14)
[2019-04-11] MEDS ORDERED: PROPOFOL INJ 200 MG/20 ML VIAL IV ONE ×2 (07:15→07:34)
--- NOTE | 2019-04-11 07:54 | Discharge Summary ---
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 Referrals: MONIKA GO MD [Primary Care Provider] - Discharge Diet: As Tolerated Discharge Activity: Activity As Tolerated Home Care Assistance: None Needed Report the Following to Your Physician Immediately: Shortness of Breath, Increase in Pain, Fever over 101 Degrees
--- NOTE | 2019-04-11 08:03 | Operative Report ---
Operative Report DATE OF SURGERY: 04/11/19 PREOPERATIVE DIAGNOSIS: 1. Chronic right anterior lateral fistula in ano, with seton placement. 2. External hemorrhoids POSTOPERATIVE DIAGNOSIS: Same OPERATION: 1. Examination under anesthesia. 2. Completion anal fistulotomy with removal of seton SURGEON: YANNA LIRA ANESTHESIA: LMAC TISSUE REMOVED OR ALTERED: Seton COMPLICATIONS: None ESTIMATED BLOOD LOSS: Scant INTRAOPERATIVE FINDINGS: See below PROCEDURE: The patient was taken to the operating room where LMAC anesthesia was induced. She is placed in the prone jackknife position buttock taped widely. The buttock was prepped and draped with Betadine Surgical plan and surgical timeout conducted. Findings were significant for collapsed, external hemorrhoids and skin tags. In the right anterior lateral position was a rubber loop seton beginning to cut through the chronic fistula. I anesthetized the fistula and surrounding perianal tissue with quarter percent Marcaine. I dilated up the anal rectal canal to admit two adult fingers. There was a moderate amount of soft brown stool. Positioning of the bullet anoscope, I was able to appreciate the internal opening of the fistula which was just inside the anal canal, several centimeters distal to the dentate line. The majority of the tissue in the loop seton was perianal skin and scar tissue, however there was felt to be a component of the external sphincter included. I felt in this situation the best course of action was to proceed with opening the fistula completely, and remove the seton per patient's wishes, understanding that this may compromise some of her sphincter function. The seton was lifted with a hemostat, and cautery used to divide the tissue bridge. The seton was disposed of. We now examined the divided tissue which consisted of a portion of the external anal sphincter. Bleeding was minimal. The majority of the widely open cavity was chronic fistula wall. This was scraped with a curette and cauterized. Final cavity size was approximately 1- 1/2 cm wide and approximately 3 cm long. I palpated the anal ring and there appeared to be some portion of the external sphincter in this area still intact. I felt the operation was complete. We did not remove any skin tags or collapsed hemorrhoids per patient's desire preoperatively. I told her we would address those on a future basis. The patient tolerated procedure well, was rotated in the supine position taken recovery room stable. Discharge instructions provided.
[2019-04-11] MEDS ORDERED: KETOROLAC TROMETHAMINE INJ/PF 30 MG/1 ML SDV ONE (08:50)
[2019-04-11] MEDS ORDERED: KETOROLAC TROMETHAMINE INJ/PF 30 MG/1 ML SDV IM ONE (09:00)
[2019-04-11 10:13] VITALS: BP 122/69
== END 2019-04-11 09:30 | disposition home or self-care (01) ==
LOC: OROUT 05:45
PROVIDERS: ATTEND Surgery
DX: K60.3 Anal fistula (principal); K64.4 Residual hemorrhoidal skin tags; I10 Essential (primary) hypertension; D57.1 Sickle-cell disease without crisis; Z88.0 Allergy status to penicillin
CPT/HCPCS: 36415; 84132; 84703; 46030; J2250; J1100; J3010; J3490; J1885; J2405; J2704; 902; J1170

== ENCOUNTER → 2019-07-22 | Outpatient (CLI) | payer OTHER ==
--- NOTE | 2019-07-22 17:16 | RADIOLOGY REPORT (SQ) ---
EXAM DESCRIPTION: SHOULDER LEFT 2 OR MORE VIEWS IMAGES COMPLETED DATE/TIME: 07/22/2019 5:01 pm REASON FOR STUDY: PAIN OF LEFT SHOULDER; PAIN OF RT SHOULDER JOINT ON MOVEMENT M25.511 PAIN IN RIGH T SHOULDER M25.512 PAIN IN LEFT SHOULDER COMPARISON: None. NUMBER OF VIEWS: Three views. TECHNIQUE: Internal rotation, external rotation, and Y view images acquired of the left shoulder. LIMITATIONS: None. FINDINGS: MINERALIZATION: Normal. BONES: No acute fracture. No worrisome bone lesions. JOINTS: No dislocation. VISUALIZED LUNGS AND RIBS: No pneumothorax. No rib fracture. SOFT TISSUES: No radiopaque foreign body. OTHER: No other significant finding. IMPRESSION: NEGATIVE STUDY OF THE LEFT SHOULDER. NO RADIOGRAPHIC EVIDENCE OF ACUTE INJURY. TECHNICAL DOCUMENTATION: JOB ID: [id number] 2010 [employer]- All Rights Reserved Reading location - IP/workstation name: [email or web address]
--- NOTE | 2019-07-22 17:17 | RADIOLOGY REPORT (SQ) ---
EXAM DESCRIPTION: SHOULDER RIGHT 2 OR MORE VIEWS IMAGES COMPLETED DATE/TIME: 07/22/2019 5:01 pm REASON FOR STUDY: PAIN OF LEFT SHOULDER; PAIN OF RT SHOULDER JOINT ON MOVEMENT M25.511 PAIN IN RIGH T SHOULDER M25.512 PAIN IN LEFT SHOULDER COMPARISON: 2016 NUMBER OF VIEWS: Three views. TECHNIQUE: Internal rotation, external rotation, and Y view images acquired of the right shoulder. LIMITATIONS: None. FINDINGS: MINERALIZATION: Normal. BONES: No acute fracture. No worrisome bone lesions. JOINTS: No dislocation. VISUALIZED LUNGS AND RIBS: No pneumothorax. No rib fracture. SOFT TISSUES: No radiopaque foreign body. OTHER: No other significant finding. IMPRESSION: NEGATIVE STUDY OF THE RIGHT SHOULDER. NO RADIOGRAPHIC EVIDENCE OF ACUTE INJURY. TECHNICAL DOCUMENTATION: JOB ID: [id number] 2010 [employer]- All Rights Reserved Reading location - IP/workstation name: [email or web address]
--- NOTE | 2019-07-22 17:26 | RADIOLOGY REPORT (SQ) ---
EXAM DESCRIPTION: C SP 4 OR 5 VIEWS IMAGES COMPLETED DATE/TIME: 07/22/2019 5:01 pm REASON FOR STUDY: PAIN OF LEFT SHOULDER; PAIN OF RT SHOULDER JOINT ON MOVEMENT M25.511 PAIN IN RIGH T SHOULDER M25.512 PAIN IN LEFT SHOULDER COMPARISON: None. NUMBER OF VIEWS: Five views. TECHNIQUE: AP, lateral, obliques and odontoid radiographic images acquired of the cervical spine. LIMITATIONS: None. FINDINGS: MINERALIZATION: Normal. ALIGNMENT: Anatomic. VERTEBRAE: Vertebral bodies of normal height. DISCS: No significant osteophytes or sclerosis. Disc height maintained. FORAMINA: No osteophytes or foraminal narrowing. LATERAL AND POSTERIOR ELEMENTS: Facets, lateral masses and spinous processes without significant find ings. HARDWARE: None in the spine. SOFT TISSUES: No masses or calcifications. Lung apices clear. OTHER: No other significant finding. IMPRESSION: NO SIGNIFICANT RADIOGRAPHIC FINDING IN THE CERVICAL SPINE. TECHNICAL DOCUMENTATION: JOB ID: [id number] 2010 [employer]- All Rights Reserved Reading location - IP/workstation name: [email or web address]
== END ==
LOC: RAD 16:32
PROVIDERS: ATTEND Pain Medicine Pain Medicine
DX: M25.511 Pain in right shoulder (principal); M25.512 Pain in left shoulder
CPT/HCPCS: 72050

== ENCOUNTER 2019-08-15 11:41 | Day surgery (SDC) | payer OTHER ==
[2019-08-12 12:19] LABS: HEMATOCRIT 37.5 % (36.0-47.0); MEAN CORPUSCULAR HEMOGLOBIN 31.7 pg (27.0-33.4); MEAN CORPUSCULAR HGB CONC 34.6 g/dL (32.0-36.0); MEAN CORPUSCULAR VOLUME 91 fl (80-97); PLATELET COUNT 283 10^3/uL (150-450); RED BLOOD COUNT 4.11 10^6/uL (3.72-5.28); RED CELL DISTRIBUTION WIDTH 14.8 % (11.5-14.0); WHITE BLOOD COUNT 5.9 10^3/uL (4.0-10.5)
[2019-08-12 12:30] LABS: APPEARANCE,URINE SLIGHTLY-CLOUDY; BILIRUBIN,URINE NEGATIVE (NEGATIVE); COLOR,URINE YELLOW; GLUCOSE, URINE NEGATIVE (NEGATIVE); KETONES,URINE NEGATIVE (NEGATIVE); LEUKOCYTE ESTERASE,URINE NEGATIVE (NEGATIVE); NITRITE,URINE NEGATIVE (NEGATIVE); PROTEIN,URINE NEGATIVE (NEGATIVE); URINE SPECIFIC GRAVITY 1.018; UROBILINOGEN,URINE NEGATIVE mg/dL (<2.0)
--- NOTE | 2019-08-12 12:42 | RADIOLOGY REPORT (SQ) ---
EXAM DESCRIPTION: CHEST PA/LATERAL IMAGES COMPLETED DATE/TIME: 08/12/2019 12:25 pm REASON FOR STUDY: PRE-OP COMPARISON: 02/18/2019 EXAM PARAMETERS: NUMBER OF VIEWS: two views TECHNIQUE: Digital Frontal and Lateral radiographic views of the chest acquired. RADIATION DOSE: NA LIMITATIONS: none FINDINGS: LUNGS AND PLEURA: No opacities, masses or pneumothorax. No pleural effusion. MEDIASTINUM AND HILAR STRUCTURES: No masses or contour abnormalities. HEART AND VASCULAR STRUCTURES: Heart normal size. No evidence for failure. BONES: No acute findings. HARDWARE: None in the chest. OTHER: No other significant finding. IMPRESSION: NO SIGNIFICANT RADIOGRAPHIC FINDING IN THE CHEST. TECHNICAL DOCUMENTATION: JOB ID: [id number] 2010 [employer]- All Rights Reserved Reading location - IP/workstation name: [email or web address]
--- NOTE | 2019-08-12 13:10 | EKG REPORT ---
SEVERITY:- NORMAL ECG - SINUS RHYTHM : Confirmed by: Tung Hedrick MD 12-Aug-2019 13:09:44
[~2019-08-15 11:41] MED LIST changes: +DEXAMETHASONE SOD PHOSPHATE INJ 4 MG/1 ML VIAL ONE; +DOXYCYCLINE HYCLATE 100 MG in DEXTROSE 5%-WATER 250 ML IV PRN; +KETOROLAC TROMETHAMINE 60 MG/2 ML SDV ONE; +LACTATED RINGERS 1000 ML IV PRN; +LIDOCAINE 0.5% INJ-PF (5 MG/ML) 50 ML SDV SUBCUT PRN; -LIDOCAINE 1%/EPINEPHRINE INJ 20 ML VIAL ONE; +LIDOCAINE 2% INJ-PF (20 MG/ML) 2 ML AMPUL ONE; +ONDANSETRON HCL INJ/PF 4 MG/2 ML SDV ONE; +SUCCINYLCHOLINE CHLORIDE INJ 200 MG/10 ML VIAL ONE
[2019-08-15] MEDS ORDERED: LIDOCAINE 1%/EPINEPHRINE INJ 20 ML VIAL ONE (13:03)
[2019-08-15] MEDS ORDERED: FENTANYL CITRATE INJ/PF 100 MCG/2 ML AMPUL ONE (13:05)
[2019-08-15] MEDS ORDERED: PROPOFOL INJ 200 MG/20 ML VIAL IV ONE (13:06)
[2019-08-15] MEDS ORDERED: MIDAZOLAM 2 MG/2 ML INJ ONE (13:06)
[2019-08-15] MEDS ORDERED: DIPHENHYDRAMINE HCL 50 MG/ML VIAL IV PRN (13:37)
[2019-08-15] MEDS ORDERED: OXYCODONE-ACETAMINOPHEN 5-325 MG TABLET PO PRN ×4 (13:37→15:04)
[2019-08-15] MEDS ORDERED: MEPERIDINE HCL/PF INJ 25 MG/1 ML DISP.SYRIN IV PRN (13:37)
[2019-08-15] MEDS ORDERED: FENTANYL CITRATE INJ/PF 100 MCG/2 ML AMPUL IV PRN (13:37)
[2019-08-15] MEDS ORDERED: MORPHINE SULFATE 10 MG/ML INJ IV PRN (13:37)
[2019-08-15] MEDS ORDERED: PROMETHAZINE HCL INJ 25 MG/1 ML VIAL IV PRN ×2 (13:37)
[2019-08-15] MEDS: FENTANYL CITRATE INJ/PF 100 MCG/2 ML AMPUL ONE ×2 (14:17→14:22)
[2019-08-15] MEDS ORDERED: ONDANSETRON HCL INJ/PF 4 MG/2 ML SDV IV PRN (15:00)
[2019-08-15] MEDS ORDERED: RINGERS SOLUTION,LACTATED 1,000 ML IV PRN (15:02)
[2019-08-15] MEDS ORDERED: HYDROMORPHONE HCL INJ/PF 2 MG/ML AMPULE IV PRN (15:03)
[2019-08-15] MEDS ORDERED: IBUPROFEN 800 MG TABLET PO PRN (15:03)
[2019-08-15] MEDS ORDERED: OXYCODONE-ACETAMINOPHEN 5-325 MG TABLET ONE (15:17)
[2019-08-15 16:52] VITALS: BP 137/77
--- NOTE | 2019-08-16 07:45 | Operative Report ---
Operative Report DATE OF SURGERY: 08/16/19 PREOPERATIVE DIAGNOSIS: Postmenopausal Bleeding with endometrial polyps POSTOPERATIVE DIAGNOSIS: MCKENZIE, endometrial fibroid, multiple polyps OPERATION: EUA, paracervical Block, Hysteroscopy, Myosure excision of polyps and endometrial fibroid, Dilation and Curettage SURGEON: ANANTH SANFORD ANESTHESIA: GA TISSUE REMOVED OR ALTERED: Myosure removed polyps and endometrial fibroid, EMC COMPLICATIONS: None PROCEDURE: Anesthesia: [ dougie CHRISTINE, Donald Lovell DIRECTOR OF NURSES REGISTRY] IVF: [] UOP: void prior to OR Indications: [53yo on HRT for climacteric symptoms presents with reported irregular and dysfunctional bleeding suspected postmenopausal bleeding.] Procedure: The patient was taken to the Operating Room where general anesthesia was obtained without difficulty. She was prepped and draped in the normal sterile fashion in the dorsal lithotomy position. Exam under anesthesia was performed and noted above. A speculum was placed in the vagina. The anterior cervix was grasped with a single-tooth tenaculum and the uterus sounded to 8 cm after paracervical block was performed with 8 mL of 1% lidocaine with epinephrine. Sequential dilators were then used to dilate the cervix to accommodate the Myosure hysteroscope. The hysteroscope was then gently advanced into the uterine cavity in the usual fashion with visualization of the endometrial polyp as noted above. The Myosure device was then advanced through the hysteroscope and used to easily remove the endometrial polyps and endometrial polyp on the patient's right noted within intrauterine cavity. The Myosure device was then removed and the hysteroscope removed. At this time gentle curettage was performed until a gritty texture was noted. All instruments were removed from the patient's cervix and vagina. Silver nitrate was applied to the tenaculum site for hemostasis. Sponge lap needle and instrument counts are correct 2. Doxycycline 100mg given IV preoperatively. The patient tolerated the procedure well and was taken to the recovery area awake and in stable condition.
== END 2019-08-15 16:10 | disposition home or self-care (01) ==
LOC: OROUT 11:41
PROVIDERS: ATTEND Student in an Organized Health Care Education/Training Program
DX: N84.0 Polyp of corpus uteri (principal); N95.0 Postmenopausal bleeding; N95.1 Menopausal and female climacteric states; I10 Essential (primary) hypertension; Z88.0 Allergy status to penicillin; Z79.899 Other long term (current) drug therapy; K21.9 Gastro-esophageal reflux disease without esophagitis; E66.9 Obesity, unspecified; Z88.8 Allergy status to other drugs, medicaments and biological substances; Z03.818 Encounter for observation for suspected exposure to other biological agents ruled out; A63.0 Anogenital (venereal) warts
CPT/HCPCS: 93005; 36415 ×2; 84132; 85027; 87635; 81001; 88305 ×2; 71046; 93010; 00952; 58558; J2250; J1100; J3490 ×3; J1885; J3010; J0330; J2405; J7060; J2704; C9803; 952

== ENCOUNTER 2020-01-06 18:12 | Emergency (ER) | payer OTHER ==
[2020-01-06 18:37] VITALS: BP 152/101
--- NOTE | 2020-01-06 19:02 | ER Document Report ---
ED Medical Screen (RME) - General Chief Complaint: Shortness Of Breath Stated Complaint: SHORTNESS OF BREATH Time Seen by Provider: 01/06/20 18:55 Primary Care Provider: MONIKA GO MD [Primary Care Provider] - Follow up as needed Mode of Arrival: Ambulatory Information source: Patient Notes: 54-year-old female presents to ED for cough congestion short of breath. She states she was tested positive for Covid 13 days ago. She states she has not had any fevers. She goes to [facility]. She states they did give her Augmentin about a week ago for cough and yellow sputum but is not gotten any better. She states she did have mild but they are getting better. She does have elevated blood pressure and forgot to take her blood pressure medicine this morning. She did take it at this time. She will be seen by another provider. I have records show that she is allergic to penicillin but she did get Augmentin by her primary doctor and states that she did not have reactions. I have greeted and performed a rapid initial assessment of this patient. A comprehensive ED assessment and evaluation of the patient, analysis of test results and completion of medical decision making process will be conducted by an additional ED providers. TRAVEL OUTSIDE OF THE [place] IN LAST 30 DAYS: No - Related Data Allergies/Adverse Reactions: cefdinir [From [employer]] Allergy (Intermediate, Verified 08/12/19 11:54) rash, hives Penicillins Allergy (Intermediate, Verified 08/12/19 11:54) rash,hives Past Medical History - General Information source: Patient - Social History Cigarette use (# per day): No Chew tobacco use (# tins/day): No Frequency of alcohol use: None Drug Abuse: None Lives with: Family Family history: Reviewed & Not Pertinent - Past Medical History Cardiac Medical History: Reports: Hx Hypertension Pulmonary Medical History: Reports: Hx Bronchitis EENT Medical History: Reports: None Neurological Medical History: Reports: Hx Migraine Endocrine Medical History: Reports: None Renal/ Medical History: Reports: None Malignancy Medical History: Reports: Other - Polyps removed from uterus in October GI Medical History: Reports: None Musculoskeltal Medical History: Reports Hx Arthritis - OA, RA, Reports Hx Musculoskeletal Deformity, Reports Hx Musculoskeletal Trauma Skin Medical History: Reports Hx Cellulitis Psychiatric Medical History: Reports: None Traumatic Medical History: Reports: None Infectious Medical History: Reports: None Past Surgical History: Reports: Hx Orthopedic Surgery - carpal tunnel both hands - Immunizations Immunizations up to date: No Hx Diphtheria, Pertussis, Tetanus Vaccination: No - 2005 Physical Exam - Vital signs Vitals: Temp Pulse Resp BP Pulse Ox 97.9 F 102 H 22 H 152/101 H 100 01/06/20 18:35 01/06/20 18:35 01/06/20 18:35 01/06/20 18:35 01/06/20 18:35 Course - Vital Signs Vital signs: Temp Pulse Resp BP Pulse Ox 97.9 F 102 H 22 H 152/101 H 100 01/06/20 18:35 01/06/20 18:35 01/06/20 18:35 01/06/20 18:35 01/06/20 18:35 Doctor's Discharge - Discharge Referrals: MONIKA GO MD [Primary Care Provider] - Follow up as needed
--- NOTE | 2020-01-06 19:26 | RADIOLOGY REPORT (SQ) ---
EXAM DESCRIPTION: CHEST SINGLE VIEW IMAGES COMPLETED DATE/TIME: 01/06/2020 7:10 pm REASON FOR STUDY: Cough congestion sputum positive Covid COMPARISON: 08/12/2019 EXAM PARAMETERS: NUMBER OF VIEWS: One view. TECHNIQUE: Single frontal radiographic view of the chest acquired. RADIATION DOSE: NA LIMITATIONS: None. FINDINGS: LUNGS AND PLEURA: No opacities, masses or pneumothorax. No pleural effusion. MEDIASTINUM AND HILAR STRUCTURES: No masses. Contour normal. HEART AND VASCULAR STRUCTURES: Heart normal in size. Normal vasculature. BONES: No acute findings. HARDWARE: None in the chest. OTHER: No other significant finding. IMPRESSION: NO ACUTE RADIOGRAPHIC FINDING IN THE CHEST. TECHNICAL DOCUMENTATION: JOB ID: [id number] 2010 [employer]- All Rights Reserved Reading location - IP/workstation name: [email or web address]
[2020-01-06 21:41] LABS: ABSOLUTE BASOPHILS # (AUTO) 0.1 10^3/uL (0.0-0.2); ABSOLUTE EOSINOPHILS # (AUTO) 0.2 10^3/uL (0.0-0.6); ABSOLUTE LYMPHOCYTES (AUTO) 1.8 10^3/uL (0.5-4.7); ABSOLUTE MONOCYTES (AUTO) 0.5 10^3/uL (0.1-1.4); ABSOLUTE NEUT (AUTO) 5.3 10^3/uL (1.7-8.2); BASOPHILS % (AUTO) 0.8 % (0-2); HEMATOCRIT 37.3 % (36.0-47.0); HEMOGLOBIN 12.7 g/dL (12.0-15.5); MEAN CORPUSCULAR HEMOGLOBIN 30.5 pg (27.0-33.4); MEAN CORPUSCULAR HGB CONC 33.9 g/dL (32.0-36.0); MEAN CORPUSCULAR VOLUME 90 fl (80-97); MONOCYTES % (AUTO) 6.8 % (3-13); PLATELET COUNT 277 10^3/uL (150-450); RED BLOOD COUNT 4.16 10^6/uL (3.72-5.28); RED CELL DISTRIBUTION WIDTH 14.6 % (11.5-14.0); SEGMENTED NEUTROPHILS % (AUTO) 66.4 % (42-78); TOTAL CELLS COUNTED % (AUTO) 100 %
[2020-01-06 21:50] LABS: ALBUMIN 4.4 g/dL (3.5-5.0); ALKALINE PHOSPHATASE 57 U/L (38-126); ANION GAP 8 (5-19); ASPARTATE AMINO TRANSFERASE 23 U/L (14-36); BILIRUBIN,DIRECT 0.1 mg/dL (0.0-0.4); BILIRUBIN,TOTAL 0.7 mg/dL (0.2-1.3); BLOOD UREA NITROGEN 12 mg/dL (7-20); CALCIUM 9.7 mg/dL (8.4-10.2); CARBON DIOXIDE 30 mmol/L (22-30); CHLORIDE 101 mmol/L (98-107); GLUCOSE 114 mg/dL (75-110); POTASSIUM 4.4 mmol/L (3.6-5.0); TOTAL PROTEIN 7.3 g/dL (6.3-8.2)
--- NOTE | 2020-01-06 22:32 | ER Document Report ---
Entered by LAURA MCGOVERN SCRIBE 01/06/200 Acting as scribe for:LOLA DE SOUZA, DO ED General - General Chief Complaint: Shortness Of Breath Stated Complaint: SHORTNESS OF BREATH Time Seen by Provider: 01/06/20 18:55 Primary Care Provider: MONIKA GO MD [Primary Care Provider] - Follow up as needed Mode of Arrival: Ambulatory Information source: Patient Notes: This 54 year old female patient presents to the emergency department today with a chief complaint of shortness of breath. Patient states for the past x2 weeks she has been sick with sinus congestion and found out people [facility] were tested covid +. Patient states she was then tested covid + and reports tongue sores, loose stool, cough, and shortness of breath. Patient states she was prescribed Augmentin about a week ago, just finished it, and states the Augmen tin and magic mouthwash have helped some. Denies any fevers. Patient states she has a albuterol nebulizer machine at home and has provided some relief for her shortness of breath. TRAVEL OUTSIDE OF THE [place] IN LAST 30 DAYS: No - Related Data Allergies/Adverse Reactions: cefdinir [From Omnicef] Allergy (Intermediate, Verified 01/06/20 20:50) rash, hives Penicillins Allergy (Intermediate, Verified 01/06/20 20:50) rash,hives Past Medical History - General Information source: Patient - Social History Smoking Status: Never Smoker Cigarette use (# per day): No Chew tobacco use (# tins/day): No Frequency of alcohol use: None Drug Abuse: None Lives with: Family Family History: Arthritis, CAD, COPD, CVA, DM, Hyperlipidemia, Hypertension, Malignancy Patient has homicidal ideation: No - Past Medical History Cardiac Medical History: Reports: Hx Hypertension Pulmonary Medical History: Reports: Hx Bronchitis Neurological Medical History: Reports: Hx Migraine Malignancy Medical History: Reports: Other - Polyps removed from uterus in October Musculoskeletal Medical History: Reports Hx Arthritis - OA, RA, Reports Hx Musculoskeletal Deformity, Reports Hx Musculoskeletal Trauma Skin Medical History: Reports Hx Cellulitis Past Surgical History: Reports: Hx Orthopedic Surgery - carpal tunnel both hands - Immunizations Immunizations up to date: No Hx Diphtheria, Pertussis, Tetanus Vaccination: No - 2005 Review of Systems - Review of Systems Constitutional: See HPI. denies: Fever EENT: See HPI, Other - sinus congestion, tongue sores Cardiovascular: No symptoms reported Respiratory: See HPI, Cough, Short of breath Gastrointestinal: See HPI, Other - loose stool Genitourinary: No symptoms reported Female Genitourinary: No symptoms reported Musculoskeletal: No symptoms reported Skin: No symptoms reported Hematologic/Lymphatic: No symptoms reported Neurological/Psychological: No symptoms reported -: Yes All other systems reviewed and negative Physical Exam - Vital signs Vitals: Temp Pulse Resp BP Pulse Ox 97.9 F 102 H 22 H 152/101 H 100 01/06/20 18:35 01/06/20 18:35 01/06/20 18:35 01/06/20 18:35 01/06/20 18:35 - General General appearance: Appears well, Alert - HEENT Head: Normocephalic, Atraumatic Eyes: Normal Pupils: PERRL Mucous membranes: Moist - Respiratory Respiratory status: No respiratory distress Chest status: Nontender Chest palpation: Normal Notes: Mildly diminished breath sounds bilaterally. - Cardiovascular Rhythm: Regular Heart sounds: Normal auscultation Murmur: No - Abdominal Inspection: Obese, Other - soft Distension: No distension Bowel sounds: Normal Tenderness: Nontender - Extremities General upper extremity: Normal inspection, Normal ROM General lower extremity: Normal inspection, Normal ROM. No: Edema - Neurological Neuro grossly intact: Yes Cognition: Normal Orientation: AAOx4 [place] Coma Scale Eye Opening: Spontaneous [place] Coma Scale Verbal: Oriented [place] Coma Scale Motor: Obeys Commands Sanjay Coma Scale Total: 15 Speech: Normal Motor strength normal: LUE, RUE, LLE, RLE Sensory: Normal - Psychological Associated symptoms: Normal affect, Normal mood - Skin Skin Temperature: Warm Skin Moisture: Dry Skin Color: Normal Course - Vital Signs Vital signs: Temp Pulse Resp BP Pulse Ox 97.9 F 102 H 22 H 152/101 H 100 01/06/20 18:35 01/06/20 18:35 01/06/20 18:35 01/06/20 18:35 01/06/20 18:35 - Laboratory Result Diagrams: 01/06/20 21:23 01/06/20 21:23 Laboratory results interpreted by me: 01/06/20 01/06/20 01/06/20 21:23 21:23 21:23 RDW 14.6 H Glucose 114 H C-Reactive Protein 16.0 H Ur Leukocyte Esterase 01/06/20 22:26 RDW Glucose C-Reactive Protein Ur Leukocyte Esterase TRACE H - Diagnostic Test Radiology reviewed: Image reviewed, Reports reviewed - EKG Interpretation by Me EKG shows normal: Sinus rhythm Rate: Normal Rhythm: NSR - NSR NL [place] [address] elevation or depression my interpretation. Discharge - Discharge Clinical Impression: COVID-19 Dyspnea Qualifiers: Dyspnea type: unspecified Qualified Code(s): R06.00 - Dyspnea, unspecified Condition: Stable Disposition: HOME, SELF-CARE Instructions: COVID-19 Guidance for Persons Under Investigation, Cough Suppressant & Expectorant Medications Additional Instructions: Rest, plenty of fluids. Take 1 gram of vitamin C daily. Take your antibiotics as directed. Please return here for chest pain, fever, shortness of breath or other problems or concerns. Your medicine was sent to [facility] in [place]. Prescriptions: Albuterol Sulfate [Albuterol Sulfate Hfa] 2 puff IH TID #1 hfa.aer.ad Methylprednisolone [Medrol Dosepack (4 mg/Tab) 21 Tab/Dosepak] 4 mg PO ASDIR PRN #1 tab.ds.pk PRN Reason: Azithromycin [Zithromax 250 mg Tablet] 250 mg PO ASDIR PRN #6 tablet PRN Reason: Forms: Return to Work Referrals: MONIKA GO MD [Primary Care Provider] - Follow up as needed I personally performed the services described in the documentation, reviewed and edited the documentation which was dictated to the scribe in my presence, and it accurately records my words and actions.
[2020-01-06 22:42] LABS: APPEARANCE,URINE SLIGHTLY-CLOUDY; BILIRUBIN,URINE NEGATIVE (NEGATIVE); COLOR,URINE STRAW; GLUCOSE, URINE NEGATIVE (NEGATIVE); KETONES,URINE NEGATIVE (NEGATIVE); LEUKOCYTE ESTERASE,URINE TRACE (NEGATIVE); NITRITE,URINE NEGATIVE (NEGATIVE); PROTEIN,URINE NEGATIVE (NEGATIVE); URINE SPECIFIC GRAVITY 1.014; UROBILINOGEN,URINE NEGATIVE mg/dL (<2.0)
--- NOTE | 2020-01-07 10:02 | EKG REPORT ---
SEVERITY:- NORMAL ECG - SINUS RHYTHM : Confirmed by: Erwin Adams MD 07-Jan-2020 10:01:08
== END 2020-01-06 22:54 | disposition home or self-care (01) ==
LOC: ER 18:12
DX: U07.1 COVID-19 (principal); R06.00 Dyspnea, unspecified; I10 Essential (primary) hypertension
CPT/HCPCS: 36415; 71045; 80053; 81001; 85025; 85379; 86140; 93005; 93010; 99285